=== PATIENT | male | born 1940 | race Caucasian/White ===

== ENCOUNTER 2017-06-21 08:13 | Inpatient (IN) | payer OTHER, MEDICARE ==
[2017-06-21] VITALS (7 sets, daily range): BP systolic 119–126; BP diastolic 60–64
[~2017-06-21] VITALS: Ht 167.6 cm; Wt 64.0 kg
[~2017-06-21 08:13] MED LIST: ASPIRIN81 M4 PO; NIFEDIPINE ER60 M1 PO; PRAVACHOL40 M1 PO
--- NOTE | 2017-06-21 08:27 | ED GENERAL ADULT ---
History of Present Illness General Chief Complaint: General Adult Stated Complaint: SENT IN BY DR EVERETT FOR KIDNEY FAILURE Source: patient Exam Limitations: no limitations Vital Signs & Intake/Output Vital Signs & Intake/Output Vital Signs Date Time Temp Pulse Resp B/P B/P Pulse O2 O2 Flow FiO2 Mean Ox Delivery Rate 06/21 1143 97.4 70 18 147/65 98 Room Air 06/21 0856 98 Room Air 06/21 0825 96.6 84 18 120/59 100 Room Air Allergies Coded Allergies: NO KNOWN ALLERGIES (08/04/13) Reconcile Medications Aspirin (Aspirin*) 81 MG TAB.CHEW 1 TAB PO DAILY HEART HEALTH (Reported) Nifedipine (Nifedipine ER) 60 MG TABLET.ER 1 TAB PO DAILY HEART (Reported) Pravastatin Sodium (Pravachol) 40 MG TABLET 1 TAB PO DAILY CHOLESTEROL ( Reported) Triage Note: PT TO ED FOR RE EVAL, SAW WEDNESDAY FOR NEW ONSET LIVER AND KIDNEY FAILURE AND LEFT AMA. REPORTING BACK TODAY FOR "FURTHER WORK UP". REPORTING FEELING WELL, NO VOMITING/NAUSEA OVER THE WEEKEND, APPEARS JAUNDICE IN TRIAGE WITH DISTENDED ABD. Triage Nurses Notes Reviewed? yes Onset: Gradual Duration: unknown duration Timing: recent history HPI: 06/21/17 9 AM 76-year-old male presents to the emergency department for follow-up. He was seen in the emergency department on Wednesday and signed out AMA. He had acute kidney injury, abdominal distention liver failure and jaundice. He now presents for follow-up. He denies fever chest pain or shortness of breath Past History Travel History Traveled to [place] past 21 day No Medical History Any Pertinent Medical History? see below for history Neurological: NONE EENT: NONE Cardiovascular: TRIPLE BYPASS Respiratory: NONE Gastrointestinal: NONE Hepatic: LIVER FAILURE Renal: KIDNEY FAILURE Musculoskeletal: GENERAL BODY ACHES Psychiatric: NONE Endocrine: NONE Blood Disorders: NONE Cancer(s): NONE Surgical History Surgical History: non-contributory Psychosocial History Who do you live with Spouse Services at Home None What is your primary language Czech Tobacco Use: Current Daily Use Daily Tobacco Use Amount/Type: => 5 Cigarettes daily ETOH Use: heavy use Illicit Drug Use: denies illicit drug use Family History Family History, If Any: MOTHER, ; Cause: Cancer. Hx Contributory? No Review of Systems Review of Systems Constitutional: Reports: no symptoms. EENTM: Reports: no symptoms. Respiratory: Reports: no symptoms. Cardiovascular: Reports: no symptoms. GI: Reports: see HPI. Genitourinary: Reports: no symptoms. Musculoskeletal: Reports: no symptoms. Skin: Reports: jaundice. Neurological/Psychological: Reports: no symptoms. Hematologic/Endocrine: Reports: no symptoms. Immunologic/Allergic: Reports: no symptoms. All Other Systems: Reviewed and Negative Physical Exam Physical Exam General Appearance: awake, anxious, mild distress Head: atraumatic, normal appearance Eyes: Bilateral: other (JAUNDICE). Ears, Nose, Throat: normal pharynx Neck: normal inspection, supple Respiratory: no respiratory distress Cardiovascular: regular rate/rhythm Peripheral Pulses: 4+ radial (R), 4+ radial (L) Gastrointestinal: distention Back: normal range of motion Extremities: pedal edema Neurologic/Psych: no motor/sensory deficits, awake, alert, oriented x 3 Skin: jaundice Core Measures ACS in differential dx? No CVA/TIA Diagnosis: No Severe Sepsis Present: No Septic Shock Present: No Progress Differential Diagnoses I considered the following diagnoses in my evaluation of the patient: [liver ailure, renal failure, malignancy,] Plan of Care: Orders Procedure Date/time Status Heart Healthy Diet 06/21 D Active Patient Data 06/21 1133 Active ED Holding Orders 06/21 1109 Active Admit to inpatient 06/21 1109 Active Vital Signs 06/21 1109 Active Code Status 06/21 1109 Active US-LIMITED ABDOMEN 06/21 0918 Active PROTHROMBIN TIME 06/21 0829 Complete COMPREHENSIVE METABOLIC PANEL 06/21 0829 Complete CBC WITHOUT DIFFERENTIAL 06/21 0829 Complete EKG 06/21 0829 Active Current Medications Sig/Izzy Start time Last Medication Dose Stop Time Status Admin Sodium Chloride 1,000 ML ONCE ONE 06/21 0830 AC 06/21 (Normal Saline 0.9%) 06/21 1829 0851 Laboratory Tests 06/21/17 0848: Anion Gap 18 H, Estimated GFR 19 L, BUN/Creatinine Ratio 22.5, Glucose 96, Calcium 10.0, Total Bilirubin 14.5 H, AST 451 H, ALT 240 H, Alkaline Phosphatase 692 H, Total Protein 7.4, Albumin 3.5, Globulin 3.9, Albumin/ Globulin Ratio 0.9 L, PT 15.0 H, INR 1.43 H, CBC w Diff MAN DIFF ORDERED, RBC 3.66 L, MCV 96.0 H, MCH 33.2 H, RDW 15.9 H, MPV 7.6, Segmented Neutrophils 86 H, Band Neutrophils 1, Lymphocytes 6 L, Monocytes 4, Eosinophils 2, Basophils 1, Platelet Estimate INCREASED, Anisocytosis 1+, Target Cells , PUBS MCHC 34.5 Initial ED EKG: NSR, nonspecific ST T wave chg Departure Departure Disposition: OTHER PYSCH Condition: Stable Clinical Impression Primary Impression: NGOZI (acute kidney injury) Secondary Impressions: Liver failure Referrals: RANULFO GONGORA MD (PCP/Family) Departure Forms: Customer Survey General Discharge Information Admission Note Spoke With: ANA DAVEY,RAQUEL Documentation of Exam: Documentation of any treatments & extenuating circumstances including Concerns Regarding Discharge (functional status, medication knowledge or non-compliance, living conditions, etc.) that warrant an admission rather than observation: [The patient needs admission for IV fluids, GI consult, renal consult, workup for liver failure The patient also should have oncology consult for the thrombocytosis and surgical consult for the cholelithiasis. ] PATIENT: PAULINE EDUARDO PRESENT AGE: 76 PATIENT ACCOUNT NO: [id number] : 38 LOCATION: [facility] ORDERING PHYSICIAN: ESTEFANY EVERETT DO SERVICE DATE: 06/21/17 EXAM TYPE: CAT - CT ABD & PELVIS W/O IV CONTRAS EXAMINATION: CT ABDOMEN AND PELVIS WITHOUT CONTRAST CLINICAL INFORMATION: Jaundice. Concern for metastatic disease. COMPARISON: None. TECHNIQUE: Contiguous axial thin section helical images of the abdomen and pelvis were performed without oral or IV contrast. The data set was reformatted in the coronal and sagittal planes and reviewed on an independent workstation. The examination is significantly limited due to the lack of IV contrast. DLP: 366 mGy-cm. FINDINGS: There is mild dependent bibasilar atelectasis. The visualized lung bases are otherwise clear. The visualized portions of the heart are unremarkable. The liver is of overall normal attenuation with subcapsular nodularity and slightly decreased size. There is suggestion of a mass lesion within the lateral aspect of the right lobe of the liver measuring approximately 5 cm. This is best demonstrated on image 19/90. There is a cpbfs-uc-hptzehva amount of free fluid overlying the right lobe of the liver. The gallbladder is mildly distended. There is a small calculus measuring approximately 4 mm. There is likely wall thickening with mild adjacent pericholecystic fluid. The spleen, pancreas, adrenal glands are unremarkable. There is a small amount of free fluid within the left upper quadrant. The left kidney is of normal size and attenuation with scattered vascular calcifications. There is no hydronephrosis. There is an atrophic right kidney with diffuse cortical thinning. There is no hydronephrosis or nephrolithiasis. There is no abdominal free fluid. There is neither mesenteric nor retroperitoneal lymphadenopathy. Normal unopacified loops of small and large bowel are identified. There is a uxjfq-fk-hzhehvup amount of pelvic free fluid. The urinary bladder is unremarkable. There is neither pelvic nor inguinal lymphadenopathy. Bone windows: There is height loss and concavity to the superior endplate to L3. 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 There is mild disc height loss within the lower lumbar spine. IMPRESSION: Significantly limited examination due to the lack of IV contrast. However, there is suggestion of a mass lesion within the lateral aspect of the right lobe of the liver. The liver has extensive subcapsular nodularity and decreased size which is nonspecific, but could be indicative of chronic hepatocellular disease, such as cirrhosis. Recommendation is for correlation with abdominal MRI with contrast for further characterization of the suspected hepatic mass lesion. Gallbladder wall thickening with pericholecystic fluid. There is a solitary calculus. Cholecystitis cannot be excluded. Consider correlation with ultrasound. Atrophic right kidney. Hglxq-ju-lwceaugu amount of free fluid within the abdomen and pelvis of uncertain etiology. DICTATED BY: SHANELL ROSS MD DATE/TIME DICTATED:06/21/171000 TRAVELING CRANE OPERATOR:MELISSA DATE/TIME TRANSCRIBED:06/21/171000 CONFIDENTIAL, DO NOT COPY WITHOUT APPROPRIATE AUTHORIZATION. <Electronically signed in Other Vendor System> SIGNED BY: SHANELL ROSS MD 06/21/17 101 Critical Care Note Critical Care Note Critical Care Time: non-applicable
--- NOTE | 2017-06-21 08:56 | RADIOLOGY REPORT ---
EXAMINATION: CHEST 2 VIEWS CLINICAL INFORMATION: Jaundice. Concern for CHF. COMPARISON: 11/30/2012. TECHNIQUE: PA and lateral views of the chest were obtained. FINDINGS: The cardiac silhouette is not enlarged. Intact midline sternal wires are present. The mediastinal and hilar contours are unremarkable. There are neither pleural effusions nor pneumothoraces. There are no consolidations. The lungs are hyperinflated. No acute rib fractures are present. There is a healing posterior right eighth rib fracture present. IMPRESSION: No evidence for acute disease. Lung hyperinflation.
[2017-06-21 09:11] LABS: HEMATOCRIT 35.1 % (42-52); MEAN CORPUSCULAR HGB 33.2 PG (27.0-31.0); MEAN CORPUSCULAR HGB CONC 34.5 G/DL (33.0-37.0); MEAN PLATELET VOLUME 7.6 FL (7.4-10.4); RBC DISTRIBUTION WIDTH 15.9 % (11.5-14.5); RED BLOOD CELL CT 3.66 /CUMM (4.70-6.10); WHITE BLOOD CELL COUNT 15.9 /CUMM (4.8-10.8)
[2017-06-21 09:31] LABS: PLATELET COUNT 1171 /CUMM (130-400)
--- NOTE | 2017-06-21 10:11 | CT SCAN REPORT ---
EXAMINATION: CT ABDOMEN AND PELVIS WITHOUT CONTRAST CLINICAL INFORMATION: Jaundice. Concern for metastatic disease. COMPARISON: None. TECHNIQUE: Contiguous axial thin section helical images of the abdomen and pelvis were performed without oral or IV contrast. The data set was reformatted in the coronal and sagittal planes and reviewed on an independent workstation. The examination is significantly limited due to the lack of IV contrast. DLP: 366 mGy-cm. FINDINGS: There is mild dependent bibasilar atelectasis. The visualized lung bases are otherwise clear. The visualized portions of the heart are unremarkable. The liver is of overall normal attenuation with subcapsular nodularity and slightly decreased size. There is suggestion of a mass lesion within the lateral aspect of the right lobe of the liver measuring approximately 5 cm. This is best demonstrated on image 19/90. There is a tlgxf-ai-qzptyfqt amount of free fluid overlying the right lobe of the liver. The gallbladder is mildly distended. There is a small calculus measuring approximately 4 mm. There is likely wall thickening with mild adjacent pericholecystic fluid. The spleen, pancreas, adrenal glands are unremarkable. There is a small amount of free fluid within the left upper quadrant. The left kidney is of normal size and attenuation with scattered vascular calcifications. There is no hydronephrosis. There is an atrophic right kidney with diffuse cortical thinning. There is no hydronephrosis or nephrolithiasis. There is no abdominal free fluid. There is neither mesenteric nor retroperitoneal lymphadenopathy. Normal unopacified loops of small and large bowel are identified. There is a hcygb-op-cofnjncq amount of pelvic free fluid. The urinary bladder is unremarkable. There is neither pelvic nor inguinal lymphadenopathy. Bone windows: There is height loss and concavity to the superior endplate to L3. This is age indeterminant, but likely outbound telemarketing representative of a chronic fracture. There is mild disc height loss within the lower lumbar spine. IMPRESSION: Significantly limited examination due to the lack of IV contrast. However, there is suggestion of a mass lesion within the lateral aspect of the right lobe of the liver. The liver has extensive subcapsular nodularity and decreased size which is nonspecific, but could be indicative of chronic hepatocellular disease, such as cirrhosis. Recommendation is for correlation with abdominal MRI with contrast for further characterization of the suspected hepatic mass lesion. Gallbladder wall thickening with pericholecystic fluid. There is a solitary calculus. Cholecystitis cannot be excluded. Consider correlation with ultrasound. Atrophic right kidney. Vehjs-tt-qdjxfccm amount of free fluid within the abdomen and pelvis of uncertain etiology.
--- NOTE | 2017-06-21 14:03 | Admission Certification ---
Admission Certification Certification Statement - As attending physician, I certify that at the time of - admission, based on clinical presentation, severity of - symptoms, need for further diagnostic testing and - therapeutic interventions, and risk of adverse outcomes - without in-hospital treatment, in my clinical assessment, - this patient requires an acute hospital stay for a minimum - of two nights or longer. I have also considered psychsocial - factors such as support system, advanced age, financial - issues, cognitive issues, and failed out-patient treatments, - past re-admission history, safety of patient, and lack of - compliance as applicable. Specific rationale supporting this admission is: NGOZI in pt with suspected cirrhosis and ?hepatocellular ca
--- NOTE | 2017-06-21 14:14 | ULTRASOUND REPORT ---
EXAMINATION: US ABDOMEN LIMITED CLINICAL INFORMATION: Painless jaundice. COMPARISON: CT scan of the abdomen and pelvis dated 06/21/2017. TECHNIQUE: Real-time imaging of the right upper quadrant abdominal viscera. FINDINGS: PANCREAS: The pancreatic body and portions of the head and tail are visualized and appear unremarkable. LIVER: The liver is diffusely heterogeneous in echotexture, limiting assessment for mass lesion. The liver contour is lobulated and overall size of the liver is diminished, consistent with liver cirrhosis. Small amount of perihepatic ascites is seen. No definite discrete liver mass is appreciated. With color Doppler imaging, the intrahepatic IVC and the 3 hepatic veins are patent. The main portal vein in the maykel hepatis is partially patent with suspicion of nonocclusive thrombus seen. The more central portal vein and the right and left portal veins are poorly visualized and do not demonstrate flow with color Doppler imaging, raising the suspicion of portal venous thrombosis. GALLBLADDER: There is diffuse gallbladder wall thickening and gallbladder edema, which is a nonspecific finding in the setting of ascites and hepatic dysfunction. There is at least one mobile echogenic gallstone within the gallbladder. No sonographic Burnett's sign is elicited. COMMON BILE DUCT: Poorly visualized but no abnormally dilated common bile duct is seen. On one image, common bile duct is partially imaged, measuring 0.3 cm. RIGHT KIDNEY: Diffuse atrophy of the right kidney is noted with renal cortical thinning and increased echogenicity seen. No hydronephrosis. No renal calculi or focal parenchymal lesions. The kidney measures 9.4 cm in maximum dimension. FREE FLUID: Small volume of ascites is seen in the right upper quadrant. IMPRESSION: 1. Above findings are consistent with liver cirrhosis with suspicion of partial thrombus in the central portal vein and probably complete thrombosis in the right and left portal veins, which are not seen with color Doppler imaging. 2. No discrete liver mass appreciated, including in the right lobe of the liver, where on CT scan in a 5 cm mass lesion was suspected. 3. Diffuse gallbladder wall thickening, edema, pericholecystic fluid, and small gallstone are noted. Findings are nonspecific in the setting of hepatic dysfunction and ascites. Close clinical correlation is requested. 4. Atrophic right kidney. Given the above findings of suspected portal venous thrombosis and potentially discrepant findings between the CT scan and this ultrasound in regards to hepatic mass lesion, further more sensitive assessment with a dynamic MRI scan with contrast is recommended.
--- NOTE | 2017-06-21 14:16 | Cons- Gastroenterology ---
General Information and HPI Consulting Request Date of Consult: 06/21/17 Requested By: ALLY DAVEY,JAMES Ramirez Reason for Consult: I was called by the [place] [facility] on behalf of the hospitalist service to assess elevated LFTs & jaundice, in the setting of history of EtOH. Source of Information: patient, family (pt's dtr, Cindy) Exam Limitations: poor historian, limited records History of Present Illness: 76 y/o male, DNR/DNI, KASHIA, poor historian, ASHD, CABG x 3 1991 (denies NM, does not see cardiology or renal), HTN, HLD, TIA (right handed), low Vit D, ? if COPD , CRF, sent to [place] [facility] by PMD, Dr. Solano 06/18/2017, as he was found to be yellow at office visit. The patient had elevated LFTs and acute on chronic renal insufficiency on 06/18/2017 in the ER, however he left AGAINST MEDICAL ADVICE and refused imaging studies. He had been drinking alcohol up until 2 weeks prior. He was sent back to the ER by his PMD 06/21/2017, prompting the GI consult. Imaging studies were limited, due to his low GFR. 40- pack-year cigarette smoker, stopping in 1991 at the time of his CABG, but resumed cigarettes 09/2016, when his second . He is currently smoking 1/2 pack a day. He admitted to at least 5 scotches daily x years. He denied any history of viral hepatitis, IVDA, previous transfusions, body piercings, or tattoos. He denied any history of increased abdominal girth or peripheral edema. He was confused yesterday, 06/20/17, driving to [place] , when trying to visit his daughter in [place]. He denied any history of DTs, seizure , or alcohol withdrawal. His PMD stopped his ASA 81 mg daily, Provastatin & Procardia on 06/18/17, when his abnormal labs were noted. He had never had an EGD or colonoscopy. He denied any known family history of GI malignancy, GI disease, or inherited liver disease, although his mother at 60 from some type of malignancy, primary site unknown. He was unaware of being yellow, but did note pruritus & dark urine for the past week. He denied any light stool, and stated he had dark stools 1 week prior (light brown, OB+ stool on my digital exam 06/21/17). He denied any NSAID use. He denied any chest pain, shortness of breath, fevers, chills, night sweats, symptoms of UTI (aside from frequency, without dysuria), or URI. He denied any nausea, vomiting, reflux, odynophagia, dysphagia, early satiety, abdominal pain, hematemesis, hemoptysis, diarrhea, constipation, obstipation, tenesmus, or rectal bleeding. He has solid bowel movements TID, without change. He claimed he lost 40 pounds since his 09/2016, with decreased appetite. He admitted to depression, without SI or [place]. There were some questionable vague myalgias and arthralgias, which the patient cannot fully define. 08/17/14: SPEP/IPEP- *possible IgG lambda monoclonal protein. 08/20/14: UPEP- *no monoclonal Ig detected. 06/18/17: WBC 15.6 (89S/1B/3L/5M/1E/1 Baso), H/H 11.6/33.1, MCV 94.7, RDW 16.4, *PLT 1249, glucose 96, BUN/Cr 59/2.7, GFR 23, Na 132, K 5.2, HCO3 12, AG 18, Ca2 + 10.6, albumin 3.8, globulin 3.8, TBil 14 (DBil 12.6), alk phos 654, AST 293, ALT 193; Hep A Ab, Hep Bs Ag, Hep B core Ab, Hep C Ab- all negative (*no PT/PTT were sent then). *Patient left ER AMA then. 06/21/17: WBC 15.9 (86S/1B/6L/4M/2E/1 Baso), H/H 12.1/35.1, MCV 96, *PLT 1171, PT 15.0, INR 1.43, glucose 96, BUN/Cr 72/3.2, GFR 19, Na 131, K 4.8, HCO3 13, AG 18, Ca2+ 10, albumin 3.5, globulin 3.9, TBil 14.5 (*fracs pending), alk phos 692 , AST 451, ALT 240, lactate 1.9 06/21/17: U/A- hazy, judith, 1.020, 6.0, 3-5 WBC, few granular casts, few bact, mod amorph, large Hgb, + icto, 30+ protein, 4.0 urobil, neg nitrite, trace esterase. 06/21/17: *MELD- [place] 31, UNOS 31. 06/21/17: *[facility] 28.3. 06/21/17: EKG- NSR @ 69, normal axis, LAD, low voltage limb leads, PRWP. 06/21/17: CHEST XRAY, PA AND LATERAL- No evidence for acute disease. Lung hyperinflation.No cardiomegaly. No infiltrate or effusion. Post CABG. Healing posterior right 8th rib fracture. No acute rib fractures. 06/21/17: CT ABDOMEN AND PELVIS WITHOUT CONTRAST- Significantly limited examination due to the lack of IV contrast (*low GFR). * However, there is suggestion of a 5 cm mass lesion within the lateral aspect of the right lobe of the liver. The liver has extensive subcapsular nodularity and decreased size which is nonspecific, but could be indicative of chronic hepatocellular disease, such as cirrhosis. Recommendation is for correlation with abdominal MRI with contrast for further characterization of the suspected hepatic mass lesion. Gallbladder wall thickening with pericholecystic fluid. There is a solitary calculus. Cholecystitis cannot be excluded. Consider correlation with ultrasound. Atrophic right kidney & normal sized left kidney, without hydronephrosis or nephrolithiasis. Fyqbz-mm-zwyerumh amount of free fluid within the abdomen and pelvis (LUQ) of uncertain etiology. 06/21/17: US ABDOMEN LIMITED- 1. Above findings are consistent with liver cirrhosis with *suspicion of partial thrombus in the central portal vein and probably complete thrombosis in the right and left portal veins, which are not seen with color Doppler imaging. 2. *No discrete liver mass appreciated, including in the right lobe of the liver, where on CT scan in a 5 cm mass lesion was suspected. 3. Diffuse gallbladder wall thickening, edema, pericholecystic fluid, and small gallstone are noted. Findings are nonspecific in the setting of hepatic dysfunction and ascites. Negative ultrasonic Burnett sign. Close clinical correlation is requested. No dilated ducts seen. CBD 3 mm. * 4. Atrophic right kidney. *Given the above findings of suspected portal venous thrombosis and potentially discrepant findings between the CT scan and this ultrasound in regards to hepatic mass lesion, further more sensitive assessment with a dynamic MRI scan with contrast is recommended. *I discussed this with Dr. Goodman, of [facility], on 06/21/17. *The patient's low GFR prohibits MRI with gadolinium, so she advised MRI without gadolinium to r/o portal vein thrombus. Allergies/Medications Allergies: Coded Allergies: NO KNOWN ALLERGIES (UNKNOWN 06/21/17) Home Med List: Aspirin (Aspirin*) 81 MG TAB.CHEW 1 TAB PO DAILY HEART HEALTH (Reported) Nifedipine (Nifedipine ER) 60 MG TABLET.ER 1 TAB PO DAILY HEART (Reported) Pravastatin Sodium (Pravachol) 40 MG TABLET 1 TAB PO DAILY CHOLESTEROL ( Reported) Current Medications: Current Medications Sig/Izzy Start time Last Medication Dose Route Stop Time Status Admin Folic Acid 1 MG DAILY 06/22 1000 AC PO Lorazepam 0 Q1P PRN 06/21 1415 AC IV Morphine Sulfate 0.5 MG Q6-PRN PRN 06/21 1545 AC IV Multivitamins 0 .STK-MED ONE 06/21 1412 DC PO Multivitamins 1 TAB DAILY 06/21 1400 AC 06/21 PO 1408 Nicotine 0 .STK-MED ONE 06/21 1412 DC TOP Nicotine 14 MG Q24 06/21 1359 AC 06/21 TOP 1408 Polyethylene Glycol 1 GAL ONE TIME ONE 06/21 1600 DC PO 06/21 1601 Sodium Chloride 1,000 ML .Q10H 06/21 1900 AC IV 06/22 0459 Sodium Chloride 1,000 ML .Q10H 06/21 1400 DC 06/21 IV 06/21 2359 1414 Sodium Chloride 1,000 ML ONCE ONE 06/21 0830 AC 06/21 IV 06/21 1829 0851 Past History Travel History Traveled to [place] past 21 day No Medical History Blood Transfusion Hx: No Neurological: TIA EENT: NONE Cardiovascular: CAD, hypertension, hyperlipidemia, TRIPLE BYPASS 1991 CABG Respiratory: NONE (hyperinflated lungs on CXR), COPD Gastrointestinal: NONE Hepatic: cholelithiasis, jaundice, elevated LFTs- EtOH Renal: chronic kidney disease, KIDNEY FAILURE Musculoskeletal: GENERAL BODY ACHES Psychiatric: depression (since 2nd 09/2016) Endocrine: vitamin D deficiency Blood Disorders: thrombocytosis Cancer(s): NONE 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 , Age 60+; Cause: Cancer. FATHER, , Age 59; Cause: Myocardial infarction. Psychosocial History Where Do You Live? Home Who Do You Live With? self Services at Home: None Primary Language: Greek Smoking Status: Current Everyday Smoker ETOH Use: heavy use Illicit Drug Use: denies illicit drug use Living Will? yes Power of Amusement Park Entertainer/HCP? no Other Social History: from 1st in 1973. Twin dtrs by 1st - [employer]. 2nd 1976, who 09/2016. Depressed since. 40 pk yr cigarette smoker ( resumed 1/2 ppd in 09/2016). Long hx EtOH abuse- 5 scotches/day. No drugs or IVDA. 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 Lives alone. Functional Ability ADLs Independent: dressing, eating, toileting, bathing. Ambulation: independent IADLs Independent: shopping, housework, finances, food prep, telephone, transportation , medication admin. 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 Review of Systems Constitutional: Reports: weakness, unexplained weight loss. Denies: chills, diaphoresis, fever, malaise. EENTM: Reports: icterus. Denies: blurred vision, double vision, visual changes, eye pain, eye drainage, eye tearing, ear discharge, ear pain, ear redness, hearing changes, nasal congestion, epistaxis, nasal pain, throat pain, throat swelling, mouth pain, tooth pain. Cardiovascular: Denies: chest pain, edema, orthopena, palpitations, peripheral edema, syncope. Respiratory: Denies: cough, hemoptysis, orthopnea, short of breath, sputum production, stridor, wheezing. GI: Denies: abdominal pain, bloating, constipation, diarrhea, distention, bowel incontinence, melena, nausea, bloody stool, changes in stool, vomiting, steatorrhea. Genitourinary: Reports: frequency. Denies: discharge, dysuria, hematuria, hesitation, nocturia , pain, urgency. Musculoskeletal: Reports: joint swelling, muscle stiffness. Denies: back pain, gout, joint pain, muscle pain, neck pain. Skin: Reports: jaundice (& pruritis). Denies: cysts, change in skin color, change in hair/nails, dryness, erythema, lesions, lymphangitis, lumps, moles, rash. Neurological/Psychological: Reports: depressed (since 09/2016). Denies: anxiety, ataxia, cognitive dysfunction, confusion, dementia, emotional problems, headache, numbness, paresthesia, pre-existing deficit, petit mal seizures, tingling, tremors, tonic-clonic seizures, unable to move lower ext, unable to move upper ext, weakness, other. Hematologic/Endocrine: Denies: bruising, bleeding, polyuria, polydipsia. Immunologic/Allergic: Denies: splenectomy, HIV/AIDS, lymphadenopathy. All Other Systems: Reviewed and Negative Exam & Diagnostic Data Vital Signs and I&O Vital Signs Date Time Temp Pulse Resp B/P B/P Pulse O2 O2 Flow FiO2 Mean Ox Delivery Rate 06/21 1425 98.7 72 18 119/64 06/21 1421 98.7 72 18 119/64 97 Room Air 06/21 1143 97.4 70 18 147/65 98 Room Air 06/21 0856 98 Room Air 06/21 0825 96.6 84 18 120/59 100 Room Air Intake & Output 06/21 1600 06/21 0400 06/20 1600 06/20 0400 06/19 1600 06/19 0400 Intake Total Output Total Balance Patient 141 lb Weight Weight Reported by Patient Measurement Method Physical Exam: Well-developed, slightly malnourished, chronically ill-appearing yellow male, in no apparent distress. Sclera icteric. Conjunctiva pink. Oropharynx clear. No oral thrush. No aphthous ulcers. There is no adenopathy, thyromegaly, JVD, or HJR. carotids 1+ B/L without bruit. No peripheral stigmata of inflammatory bowel disease on exam. ? Faint spiders on the anterior chest wall. No gynecomastia. No CVA tenderness. Lungs: clear to A&P, with slight decreased breath sounds at the bases B/L. Slightly prolonged expiratory phase, without wheezing, rales, or rhonchi. Heart exam: regular rate rhythm, S1 and S2, without any murmur. Post CABG scar. Abdominal exam: normal bowel sounds, soft belly, nontender, without guarding or rebound. No definite mass. Liver approximately 11 cm by percussion. Borderline palpable spleen tip. Negative Burnett sign. Scant fluid shift. No pulsatile mass. No epigastric bruit. Digital rectal exam: done by myself 06/21/17: light brown stool, OB+, without mass. Smooth enlarged prostate, without nodule. No external hemorrhoids or fissure. Extremities: without C, C, or E. No palpable cords. No palmar erythema. No Dupuytren's contractures. Distal pulses 1+ bilaterally. DTRs 1+ bilaterally. Right handed. CN II-XII intact. Alert and oriented x 3. Motor 5/5 B/L. A detailed exam for peripheral neyuropathy & visual field testing was deferred. No tremor. No asterixis. Results Pertinent Lab Results: Laboratory Tests 06/21 06/21 1540 1540 Chemistry Lactic Acid (0.7 - 2.1 mmol/L) 1.9 Urines Urinalysis MOD H Urine Color (YEL,AMB,STR) JUDITH Urine Clarity (CLEAR) HAZY H Urine pH (5.0 - 8.0) 6.0 Ur Specific [place] (1.001 - 1.035) 1.020 Urine Protein (NEG,<30 MG/DL) 30 H Urine Ketones (NEG) NEG Urine Nitrite (NEG) NEG Urine Bilirubin (NEG) POS@ICTO H Urine Urobilinogen (0.1 - 1.0 EU/dl) 4.0 H Ur Leukocyte Esterase (NEG) TRACE H Ur Microscopic SEDIMENT EXAMINED Urine WBC (0 - 2 /HPF) 3-5 H Ur Epithelial Cells (NONE,FEW) MOD H Urine Bacteria (NEG/NONE) FEW H Granular Casts (NONE /LPF) FEW H Urine Hemoglobin (NEG) LARGE H Ur Random Creatinine (mg/dL) 122.8 Ur Random Sodium (30 - 90 mmol/L) 8 L Ur Random Potassium (mmol/L) 49.2 Fraction Sodium Excret (<1% %) 0.2 Urine Glucose (N MG/DL) NEG 06/21 0848 Chemistry Sodium (137 - 145 mmol/L) 131 L Potassium (3.5 - 5.1 mmol/L) 4.8 Chloride (98 - 107 mmol/L) 100 Carbon Dioxide (22 - 30 mmol/L) 13 L Anion Gap (5 - 16) 18 H BUN (9 - 20 mg/dL) 72 H Creatinine (0.7 - 1.2 mg/dL) 3.2 H Estimated GFR (>60 ml/min) 19 L BUN/Creatinine Ratio (7 - 25 %) 22.5 Glucose (65 - 99 mg/dL) 96 Calcium (8.4 - 10.2 mg/dL) 10.0 Total Bilirubin (0.2 - 1.3 mg/dL) 14.5 H Direct Bilirubin (< 0.4 mg/dL) 12.6 H AST (17 - 59 U/L) 451 H ALT (21 - 72 U/L) 240 H Alkaline Phosphatase (< 127 U/L) 692 H Total Protein (6.3 - 8.2 g/dL) 7.4 Albumin (3.5 - 5.0 g/dL) 3.5 Globulin (1.9 - 4.2 gm/dL) 3.9 Albumin/Globulin Ratio (1.1 - 2.2 %) 0.9 L Coagulation PT (9.4 - 12.5 SEC) 15.0 H INR (0.90 - 1.17) 1.43 H Hematology CBC w Diff MAN DIFF ORDERED WBC (4.8 - 10.8 /CUMM) 15.9 H RBC (4.70 - 6.10 /CUMM) 3.66 L Hgb (14.0 - 18.0 G/DL) 12.1 L Hct (42 - 52 %) 35.1 L MCV (80.0 - 94.0 FL) 96.0 H MCH (27.0 - 31.0 PG) 33.2 H RDW (11.5 - 14.5 %) 15.9 H Plt Count (130 - 400 /CUMM) 1171 *H MPV (7.4 - 10.4 FL) 7.6 Segmented Neutrophils (42.2 - 75.2 %) 86 H Band Neutrophils (0.0 - 5.0 %) 1 Lymphocytes (20.5 - 51.1 %) 6 L Monocytes (1.7 - 9.3 %) 4 Eosinophils (0 - 5.0 %) 2 Basophils (0.0 - 2.0 %) 1 Platelet Estimate (ADEQUATE) INCREASED Anisocytosis 1+ Target Cells PUBS MCHC (33.0 - 37.0 G/DL) 34.5 Retic Count (0.5 - 2.0 %) 3.37 H Imaging/Other Studies: 06/21/17: EKG- NSR @ 69, normal axis, LAD, low voltage limb leads, PRWP. 06/21/17: CHEST XRAY, PA AND LATERAL- No evidence for acute disease. Lung hyperinflation.No cardiomegaly. No infiltrate or effusion. Post CABG. Healing posterior right 8th rib fracture. No acute rib fractures. 06/21/17: CT ABDOMEN AND PELVIS WITHOUT CONTRAST- Significantly limited examination due to the lack of IV contrast (*low GFR). * However, there is suggestion of a 5 cm mass lesion within the lateral aspect of the right lobe of the liver. The liver has extensive subcapsular nodularity and decreased size which is nonspecific, but could be indicative of chronic hepatocellular disease, such as cirrhosis. Recommendation is for correlation with abdominal MRI with contrast for further characterization of the suspected hepatic mass lesion. Gallbladder wall thickening with pericholecystic fluid. There is a solitary calculus. Cholecystitis cannot be excluded. Consider correlation with ultrasound. Atrophic right kidney & normal sized left kidney, without hydronephrosis or nephrolithiasis. Fylvi-km-zxajfgac amount of free fluid within the abdomen and pelvis (LUQ) of uncertain etiology. 06/21/17: US ABDOMEN LIMITED- 1. Above findings are consistent with liver cirrhosis with *suspicion of partial thrombus in the central portal vein and probably complete thrombosis in the right and left portal veins, which are not seen with color Doppler imaging. 2. *No discrete liver mass appreciated, including in the right lobe of the liver, where on CT scan in a 5 cm mass lesion was suspected. 3. Diffuse gallbladder wall thickening, edema, pericholecystic fluid, and small gallstone are noted. Findings are nonspecific in the setting of hepatic dysfunction and ascites. Negative ultrasonic Burnett sign. Close clinical correlation is requested. No dilated ducts seen. CBD 3 mm. * 4. Atrophic right kidney. *Given the above findings of suspected portal venous thrombosis and potentially discrepant findings between the CT scan and this ultrasound in regards to hepatic mass lesion, further more sensitive assessment with a dynamic MRI scan with contrast is recommended. *I discussed this with Dr. Goodman, of [facility], on 06/21/17. *The patient's low GFR prohibits MRI with gadolinium, so she advised MRI without gadolinium to r/o portal vein thrombus. Assessment/Plan Assessment/Recommendations: 76 y/o male, DNR/DNI, KASHIA, poor historian, ASHD, CABG x 3 1991 (denies NM, does not see cardiology or renal), HTN, HLD, TIA (right handed), low Vit D, ? if COPD , CRF, sent to [place] ER by PMD, Dr. Solano 06/18/2017, as he was found to be yellow at office visit. The patient had elevated LFTs and acute on chronic renal insufficiency on 06/18/2017 in the ER, however he left AGAINST MEDICAL ADVICE and refused imaging studies. He had been drinking alcohol up until 2 weeks prior. He was sent back to the ER by his PMD 06/21/2017, prompting the GI consult. Imaging studies were limited, due to his low GFR. 40- pack-year cigarette smoker, stopping in 1991 at the time of his CABG, but resumed cigarettes 09/2016, when his second . He is currently smoking 1/2 pack a day. He admitted to at least 5 scotches daily x years. He denied any history of viral hepatitis, IVDA, previous transfusions, body piercings, or tattoos. He denied any history of increased abdominal girth or peripheral edema. He was confused yesterday, 06/20/17, driving to [place] , when trying to visit his daughter in [place]. He denied any history of DTs, seizure , or alcohol withdrawal. His PMD stopped his ASA 81 mg daily, Provastatin & Procardia on 06/18/17, when his abnormal labs were noted. He had never had an EGD or colonoscopy. He denied any known family history of GI malignancy, GI disease, or inherited liver disease, although his mother at 60 from some type of malignancy, primary site unknown. He was unaware of being yellow, but did note pruritus & dark urine for the past week. He denied any light stool, and stated he had dark stools 1 week prior (light brown, OB+ stool on my digital exam 06/21/17). He denied any NSAID use. He denied any chest pain, shortness of breath, fevers, chills, night sweats, symptoms of UTI (aside from frequency, without dysuria), or URI. He denied any nausea, vomiting, reflux, odynophagia, dysphagia, early satiety, abdominal pain, hematemesis, hemoptysis, diarrhea, constipation, obstipation, tenesmus, or rectal bleeding. He has solid bowel movements TID, without change. He claimed he lost 40 pounds since his 09/2016, with decreased appetite. He admitted to depression, without SI or [place]. There were some questionable vague myalgias and arthralgias, which the patient cannot fully define. 08/17/14: SPEP/IPEP- *possible IgG lambda monoclonal protein. 08/20/14: UPEP- *no monoclonal Ig detected. 06/18/17: WBC 15.6 (89S/1B/3L/5M/1E/1 Baso), H/H 11.6/33.1, MCV 94.7, RDW 16.4, *PLT 1249, glucose 96, BUN/Cr 59/2.7, GFR 23, Na 132, K 5.2, HCO3 12, AG 18, Ca2 + 10.6, albumin 3.8, globulin 3.8, TBil 14 (DBil 12.6), alk phos 654, AST 293, ALT 193; Hep A Ab, Hep Bs Ag, Hep B core Ab, Hep C Ab- all negative (*no PT/PTT were sent then). *Patient left ER AMA then. 06/21/17: WBC 15.9 (86S/1B/6L/4M/2E/1 Baso), H/H 12.1/35.1, MCV 96, *PLT 1171, PT 15.0, INR 1.43, glucose 96, BUN/Cr 72/3.2, GFR 19, Na 131, K 4.8, HCO3 13, AG 18, Ca2+ 10, albumin 3.5, globulin 3.9, TBil 14.5 (*fracs pending), alk phos 692 , AST 451, ALT 240, lactate 1.9 06/21/17: U/A- hazy, judith, 1.020, 6.0, 3-5 WBC, few granular casts, few bact, mod amorph, large Hgb, + icto, 30+ protein, 4.0 urobil, neg nitrite, trace esterase. 06/21/17: *MELD- [place] 31, UNOS 31. 06/21/17: *[facility] discriminant function 28.3. 06/21/17: EKG- NSR @ 69, normal axis, LAD, low voltage limb leads, PRWP. 06/21/17: CHEST XRAY, PA AND LATERAL- No evidence for acute disease. Lung hyperinflation.No cardiomegaly. No infiltrate or effusion. Post CABG. Healing posterior right 8th rib fracture. No acute rib fractures. 06/21/17: CT ABDOMEN AND PELVIS WITHOUT CONTRAST- Significantly limited examination due to the lack of IV contrast (*low GFR). * However, there is suggestion of a 5 cm mass lesion within the lateral aspect of the right lobe of the liver. The liver has extensive subcapsular nodularity and decreased size which is nonspecific, but could be indicative of chronic hepatocellular disease, such as cirrhosis. Recommendation is for correlation with abdominal MRI with contrast for further characterization of the suspected hepatic mass lesion. Gallbladder wall thickening with pericholecystic fluid. There is a solitary calculus. Cholecystitis cannot be excluded. Consider correlation with ultrasound. Atrophic right kidney & normal sized left kidney, without hydronephrosis or nephrolithiasis. Ozxhj-fy-wedtexki amount of free fluid within the abdomen and pelvis (LUQ) of uncertain etiology. 06/21/17: US ABDOMEN LIMITED- 1. Above findings are consistent with liver cirrhosis with *suspicion of partial thrombus in the central portal vein and probably complete thrombosis in the right and left portal veins, which are not seen with color Doppler imaging. 2. *No discrete liver mass appreciated, including in the right lobe of the liver, where on CT scan in a 5 cm mass lesion was suspected. 3. Diffuse gallbladder wall thickening, edema, pericholecystic fluid, and small gallstone are noted. Findings are nonspecific in the setting of hepatic dysfunction and ascites. Negative ultrasonic Burnett sign. Close clinical correlation is requested. No dilated ducts seen. CBD 3 mm. * 4. Atrophic right kidney. *Given the above findings of suspected portal venous thrombosis and potentially discrepant findings between the CT scan and this ultrasound in regards to hepatic mass lesion, further more sensitive assessment with a dynamic MRI scan with contrast is recommended. *I discussed this with Dr. Goodman, of [facility], on 06/21/17. *The patient's low GFR prohibits MRI with gadolinium, so she advised MRI without gadolinium to r/o portal vein thrombus. *The patient probably has alcoholic hepatitis, rule out cirrhosis. His MELD score was markedly elevated on admission. His weight loss was noted. Additionally, it is difficult to interpret his imaging studies, because of the lack of IV contrast, due to his CKD. His renal insufficiency is probably chronic in nature, with a less likely component of HRS. There is no hydronephrosis. Noncontrast CT on admission was suggestive of a 5 cm right hepatic mass, however none was seen on sono. However, there was a question of a portal vein thrombosis on sono, which I reviewed with Dr. Goodman, of [facility], who advised an MRI (albeit without IV contrast), to reassess the portal veins. The thrombocytosis is noted- rule out iron deficiency, rule out MDS, rule out underlying neoplasm. 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 The mild leukocytosis is noted, but the patient does not appear septic. He does have cholelithiasis, but most likely, this is incidental in nature. Doubt cholecystitis. He has no dilated ducts. *SUGGEST: Clears po, then NPO after 11:59 p.m. on 06/21/17 for EGD (r/o varices)/ colonoscopy on 06/22/17. GoLytely 1 gallon po tonight over 4-5 hours. The risks and benefits of EGD/colonoscopy were discussed with the patient in the presence of his daughter, Cindy Martins, & he agreed to proceed. *MRI of abdomen without gadolinium (low GFR), tonight, to check portal vein. *Would carefully resume ASA 81 mg daily for now, with history of ASHD/CABG x 3 1991/TIA & thrombocytosis. *Add PPI daily (Protonix 40 mg IV daily for now). Continue to hole Provastatin with elevated LFTs. *Advise checking AFP, CEA, Fe, TIBC, ferritin, B12, RBC folate, MMA, EPI, AMA, Hep Bs Ab. *Check NH3 level. *See if there is tappable ascites per IR- if so, needs abdominal tap & send ascitic fluid for gram stain, C&S (in BC bottles to increase yield), cell count, cytology, BF protein & BF albumin (& simultaneous serum albumin to check SAAG). *Check urine C&S, Claudia & FENa (if + HRS, would expect low Claudia & low FENa). * Advise renal consult (low GFR) & hematology consult (thrombocytosis). Workup of microscopic hematuria & abnormal urinary sediment per medical team. DVT prophylaxis with mechanical ALPS. *Check TFTs with TSH. *Thiamine, folate, MVI. 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 Ativan as needed. Avoid hepatotoxins, NSAIDS & keep Tylenol use to < 2g daily. If cirrhotic, will need outpatient follow-up for hepatoma surveillance, with AFP/RUQ sono Q 6 months. Advise annual flu shot, Pneumovax if applicable, & semi-elective Hep A & B vaccination, if not immune. *May add Questran 4g po TID 1/2 hour before meals, regarding pruritus. Consider SW & psychiatric input. *The above findings and recommendations were discussed with the patient, the patient's daughter, Cindy Martins, & the medical housestaff. The patient's daughter, Cindy, is aware of the numerous issues & significant underlying disease. Further GI recommendations to follow, depending on clinical course. Problem List: 1. Abnormal LFTs 2. Alcoholic hepatitis 3. Cirrhosis 4. Weight loss 5. Guaiac positive stools 6. Cholelithiasis 7. Renal insufficiency Copies To: ROLAN DAVEY,RANULFO; ALLY DAVEY,JAMES Lux. Consult Acknowledgment - Thank you for your consult request.
--- NOTE | 2017-06-21 17:53 | MRI REPORT ---
EXAMINATION: MR ABDOMEN WITHOUT CONTRAST CLINICAL INFORMATION: Jaundice. Weight loss. Alcoholic cirrhosis. Presumptive diagnosis of portal vein thrombosis. COMPARISON: Ultrasound of the abdomen dated 06/21/2017. CT scan of the abdomen and pelvis dated 06/21/2017. TECHNIQUE: An MRI scan of the abdomen was performed noncontrast using multiple imaging sequences and imaging planes. FINDINGS: LIVER: The liver is cirrhotic with atrophy of the right lobe and hypertrophy of the caudate lobe and left lobe. Nodular surface contour and small volume ascites are seen. There is markedly heterogeneous liver parenchymal signal and there are innumerable ill-defined nodules seen throughout the right and left lobes, most concentrated in the right lobe. Findings are highly suspicious for multifocal hepatocellular carcinoma. There is enlargement and abnormal signal seen within the main, right and left portal veins. On [id number]-[id number] imaging, no flow within the portal venous system is seen and findings are consistent with diffuse portal venous thrombosis. Given the enlargement of the veins, tumor thrombus is suspected. The intrahepatic IVC and the intrahepatic veins are attenuated but are patent. GALLBLADDER, BILIARY TREE: Gallbladder is well distended and within normal limits. No intrahepatic or extrahepatic ductal dilatation is seen. Common bile duct is normal, measuring 0.4 cm in diameter. PANCREAS: Normal. No ductal dilatation, mass, or surrounding stranding. SPLEEN: Normal size and appearance. Splenic vein difficult to visualize but where visualized appears to be patent. ADRENAL GLANDS AND KIDNEYS: Adrenal glands normal. The right kidney is atrophic. The left kidney is normal in size. Bilaterally, small subcentimeter sized T2 bright masses are seen, most consistent with cysts. No focal suspicious mass, hydronephrosis, or perinephric stranding. BOWEL LOOPS: Multilevel moderate degenerative changes in the thoracolumbar spine with multiple posterior disc osteophyte complex is seen indenting the thecal sac. LYMPHOVASCULAR STRUCTURES: Abdominal aorta normal in caliber. No periaortic collections. Please see liver section for assessment of the portal venous system and the hepatic veins. Incidentally noted is a retroaortic left renal vein. No abdominal adenopathy. Small volume ascites is seen. BONES: Multilevel moderate degenerative changes are seen in the thoracolumbar spine with multiple areas of posterior disc osteophyte complexes seen indenting the thecal sac. There may be associated spinal stenosis at the L3-L4 level. IMPRESSION: 1. Nodular cirrhotic liver with innumerable hepatic masses and small volume ascites seen. While not definitive by imaging given the lack of intravenous contrast, findings are highly suspicious for multifocal hepatocellular carcinoma. 2. Enlarged main, right and left portal veins with no vascular flow demonstrated. 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 3. Atrophic right kidney. 4. Bilateral small subcentimeter sized renal masses, most likely cysts. 5. Multilevel moderate degenerative changes in the thoracolumbar spine with posterior disc osteophyte complexes seen at multiple levels. Associated spinal stenosis at the L3-L4 level is suspected. Findings discussed with Dr. Kristina Marte 06/21/2017, 5:45 PM.
--- NOTE | 2017-06-21 20:30 | History & Physical ---
STERLING MONTALVO 06/21/172028: General Information and HPI MD Statement: I have seen and personally examined PAULINE EDUARDO and documented this H&P. The patient is a 76 year old M who presented with a patient stated chief complaint of Jaundice, weight loss Source of Information: patient, family (pt's dtr, Cindy) Exam Limitations: poor historian, limited records History of Present Illness: 76-year-old gentleman from home current smoker with past medical history significant for coronary artery disease S/P CABG (1995), HTN, Hyperlipidemia, chronic alcohol dependency (no history of seizures or DT) here for evaluation of yellowish discoloration of eyes and skin. He was initially sent to [facility] ED on 06/18 by his PCP for abnormal lab values. He left AMA from the ED as he want to attend his granddaughter's graduation which was on the 06/20/17. Per his daughter who was at bedside, [facility] got lost and [facility] on his way to the graduation. His daughter reports that recently she has noticed yellowish discoloration of his skin and eyes. Patients reports that he has been having dark stools since the past one month and urinary incontinence. Endorses 40ILbs weight loss over the past nine months, poor PO intake (eats max two meal a day which sometimes just consists of coffee and toast). Also endorses easy brusialbity lately. Since the loss of his in he has been drinking daily. 4-5 glasses of Scotch diluted with water. States his last drink was two weeks ago. On interview he denies nausea, vomiting, abdominal pain or distention, itching, dysuria, active bleeding, BRBR, fever, chills, pale colored stools. Per patient his PCP had discontinued all his medication. Allergies/Medications Allergies: Coded Allergies: NO KNOWN ALLERGIES (UNKNOWN 06/21/17) Home Med list Aspirin (Aspirin*) 81 MG TAB.CHEW 1 TAB PO DAILY HEART HEALTH (Reported) Folic Acid 1 MG TABLET 1 MG PO DAILY supplement Heparin Sodium,Porcine/D5w (Heparin-D5w 25,000 Unit/500 Ml) 25,000 UNIT/500 ML ( 50 UNIT/ML) IV.SOLN 25,000 UNITS IV Q24 thrombosis Multivitamin (One Daily Multivitamin) 1 EACH TABLET 1 TAB PO DAILY supplement Pantoprazole Sodium (Protonix) 40 MG TABLET. 40 MG IV DAILY reflux Thiamine HCl (Vitamin B-1) 100 MG TABLET 100 MG PO DAILY supplement Compliance With Home Meds: UNKNOWN Past History Travel History Traveled to [place] past 21 day No Medical History Blood Transfusion Hx: No Neurological: TIA EENT: NONE Cardiovascular: CAD, hypertension, hyperlipidemia, TRIPLE BYPASS 1991 CABG Respiratory: NONE (hyperinflated lungs on CXR), COPD Gastrointestinal: NONE Hepatic: cholelithiasis, jaundice, elevated LFTs- EtOH Renal: chronic kidney disease, KIDNEY FAILURE Musculoskeletal: GENERAL BODY ACHES Psychiatric: depression (since 2nd 09/2016) Endocrine: vitamin D deficiency Blood Disorders: thrombocytosis Cancer(s): NONE BRICK CLEANER/Reproductive: NONE Isolation History: Standard Surgical History Surgical History: CABG (x 3, 1991) Past Family/Social History Family History Relations & Conditions if any MOTHER (primary site unknown). , Age 60+; Cause: Cancer. FATHER, , Age 59; Cause: Myocardial infarction. Psychosocial History Where do you live? Home Who Do You Live With? self Services at Home: None Primary Language: Welsh Smoking Status: Current Everyday Smoker ETOH Use: heavy use Illicit Drug Use: denies illicit drug use Living Will? yes Power of Elevator Inspector/HCP? no Other Social History: from 1st in 1973. Twin dtrs by 1st - [employer]. 2nd 1976, who 09/2016. Depressed since. 40 pk yr cigarette smoker (resumed 1/2 ppd in 09/2016). Long hx EtOH abuse- 5 scotches/day. No drugs or IVDA. 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 Lives alone. Functional Ability ADLs Independent: dressing, eating, toileting, bathing. Ambulation: independent IADLs Independent: shopping, housework, finances, food prep, telephone, transportation , medication admin. 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 Denies: chills, diaphoresis, fever, malaise, unexplained weight loss. Cardiovascular: Denies: chest pain, edema, orthopena, palpitations, peripheral edema, syncope. Respiratory: Denies: cough, hemoptysis, orthopnea, short of breath, sputum production, stridor, wheezing. GI: Denies: abdominal pain, bloating, constipation, diarrhea, distention, bowel incontinence, melena, nausea, bloody stool, changes in stool, vomiting, steatorrhea. Exam & Diagnostic Data Last 24 Hrs of Vital Signs/I&O Vital Signs Date Time Temp Pulse Resp B/P B/P Pulse O2 O2 Flow FiO2 Mean Ox Delivery Rate 06/21 1800 97.3 73 18 124/60 06/21 1747 97.3 73 20 124/60 97 Room Air 06/21 1425 98.7 72 18 119/64 06/21 1421 98.7 72 18 119/64 97 Room Air 06/21 1143 97.4 70 18 147/65 98 Room Air 06/21 0856 98 Room Air 06/21 0825 96.6 84 18 120/59 100 Room Air Intake & Output 06/21 1600 06/21 0800 06/21 0000 Intake Total Output Total Balance Patient 141 lb Weight Weight Reported by Patient Measurement Method Physical Exam General Appearance Alert, Oriented X3, Cooperative, No Acute Distress Skin yellowish tinge to skin HEENT Atraumatic, PERRLA, dry mucous membranes, icterus Neck Supple, No JVD, No thryomegaly Lymphatic Axillary nl, Cervical nl Cardiovascular Regular Rate, Normal S1, Normal S2 Lungs Clear to Auscultation, Normal Air Movement Abdomen Normal Bowel Sounds, Soft, No Tenderness, No Hepatospenomegaly, No Masses Neurological Normal Speech, Strength at 5/5 X4 Ext, Normal Tone, Sensation Intact, Cranial Nerves 3-12 NL Extremities No Edema, Normal Pulses Last 24 Hrs of Labs/Vijay: Laboratory Tests 06/21/17 1540: Urinalysis MOD H, Urine Color JUDITH, Urine Clarity HAZY H, Urine pH 6.0, Ur Specific [place] 1.020, Urine Protein 30 H, Urine Ketones NEG, Urine Nitrite NEG, Urine Bilirubin POS@ICTO H, Urine Urobilinogen 4.0 H, Ur Leukocyte Esterase TRACE H, Ur Microscopic SEDIMENT EXAMINED, Urine WBC 3-5 H, Ur Epithelial Cells MOD H, Urine Bacteria FEW H, Granular Casts FEW H, Urine Hemoglobin LARGE H, Urine Glucose NEG 06/21/17 1540: Lactic Acid 1.9, Ur Random Creatinine 122.8, Ur Random Sodium 8 L, Ur Random Potassium 49.2, Fraction Sodium Excret 0.2 06/21/17 0848: Anion Gap 18 H, Estimated GFR 19 L, BUN/Creatinine Ratio 22.5, Glucose 96, Calcium 10.0, Total Bilirubin 14.5 H, Direct Bilirubin 12.6 H, AST 451 H, ALT 240 H, Alkaline Phosphatase 692 H, Total Protein 7.4, Albumin 3.5, Globulin 3.9, Albumin/Globulin Ratio 0.9 L, PT 15.0 H, INR 1.43 H, CBC w Diff MAN DIFF ORDERED, RBC 3.66 L, MCV 96.0 H, MCH 33.2 H, RDW 15.9 H, MPV 7.6, Segmented Neutrophils 86 H, Band Neutrophils 1, Lymphocytes 6 L, Monocytes 4, Eosinophils 2, Basophils 1, Platelet Estimate INCREASED, Anisocytosis 1+, Target Cells , PUBS MCHC 34.5, Retic Count 3.37 H 06/21/17 0829: EPI Titer Pending, Anti-Nuclear Antibody Pending Microbiology 06/21 1937 URINE ROUT: Urine Culture - COLB Diagnostic Data EKG Results NSR, QTc 450 CXR Results FINDINGS: The cardiac silhouette is not enlarged. Intact midline sternal wires are present. The mediastinal and hilar contours are unremarkable. There are neither pleural effusions nor pneumothoraces. There are no consolidations. The lungs are hyperinflated. No acute rib fractures are present. There is a healing posterior right eighth rib fracture present. IMPRESSION: No evidence for acute disease. Lung hyperinflation. Other Results SERVICE DATE: 06/21/17 EXAM TYPE: US - US-LIMITED ABDOMEN FINDINGS: PANCREAS: The pancreatic body and portions of the head and tail are visualized and appear unremarkable. LIVER: The liver is diffusely heterogeneous in echotexture, limiting assessment for mass lesion. The liver contour is lobulated and overall size of the liver is diminished, consistent with liver cirrhosis. Small amount of perihepatic ascites is seen. No definite discrete liver mass is appreciated. With color Doppler imaging, the intrahepatic IVC and the 3 hepatic veins are patent. The main portal vein in the maykel hepatis is partially patent with suspicion of nonocclusive thrombus seen. The more central portal vein and the right and left portal veins are poorly visualized and do not demonstrate flow with color Doppler imaging, raising the suspicion of portal venous thrombosis. GALLBLADDER: There is diffuse gallbladder wall thickening and gallbladder edema, which is a nonspecific finding in the setting of ascites and hepatic dysfunction. There is at least one mobile echogenic gallstone within the gallbladder. No sonographic Burnett's sign is elicited. COMMON BILE DUCT: Poorly visualized but no abnormally dilated common bile duct is seen. On one image, common bile duct is partially imaged, measuring 0.3 cm. RIGHT KIDNEY: Diffuse atrophy of the right kidney is noted with renal cortical thinning and increased echogenicity seen. No hydronephrosis. No renal calculi or focal parenchymal lesions. The kidney measures 9.4 cm in maximum dimension. FREE FLUID: Small volume of ascites is seen in the right upper quadrant. IMPRESSION: 1. Above findings are consistent with liver cirrhosis with suspicion of partial thrombus in the central portal vein and probably complete thrombosis in the right and left portal veins, which are not seen with color Doppler imaging. 2. No discrete liver mass appreciated, including in the right lobe of the liver, where on CT scan in a 5 cm mass lesion was suspected. 3. Diffuse gallbladder wall thickening, edema, pericholecystic fluid, and small gallstone are noted. Findings are nonspecific in the setting of hepatic dysfunction and ascites. Close clinical correlation is requested. 4. Atrophic right kidney. SERVICE DATE: 06/21/17 EXAM TYPE: CAT - CT ABD & PELVIS W/O IV CONTRAST FINDINGS: There is mild dependent bibasilar atelectasis. The visualized lung bases are otherwise clear. The visualized portions of the heart are unremarkable. The liver is of overall normal attenuation with subcapsular nodularity and slightly decreased size. There is suggestion of a mass lesion within the lateral aspect of the right lobe of the liver measuring approximately 5 cm. This is best demonstrated on image 19/90. There is a hwifw-wf-qwrqepuc amount of free fluid overlying the right lobe of the liver. The gallbladder is mildly distended. There is a small calculus measuring approximately 4 mm. There is likely wall thickening with mild adjacent pericholecystic fluid. The spleen, pancreas, adrenal glands are unremarkable. There is a small amount of free fluid within the left upper quadrant. The left kidney is of normal size and attenuation with scattered vascular calcifications. There is no hydronephrosis. There is an atrophic right kidney with diffuse cortical thinning. There is no hydronephrosis or nephrolithiasis. There is no abdominal free fluid. There is neither mesenteric nor retroperitoneal lymphadenopathy. Normal unopacified loops of small and large bowel are identified. There is a rjjjf-dd-hsomltfr amount of pelvic free fluid. The urinary bladder is unremarkable. There is neither pelvic nor inguinal lymphadenopathy. Bone windows: There is height loss and concavity to the superior endplate to L3. 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 There is mild disc height loss within the lower lumbar spine. IMPRESSION: Significantly limited examination due to the lack of IV contrast. However, there is suggestion of a mass lesion within the lateral aspect of the right lobe of the liver. The liver has extensive subcapsular nodularity and decreased size which is nonspecific, but could be indicative of chronic hepatocellular disease, such as cirrhosis. Recommendation is for correlation with abdominal MRI with contrast for further characterization of the suspected hepatic mass lesion. Gallbladder wall thickening with pericholecystic fluid. There is a solitary calculus. Cholecystitis cannot be excluded. Consider correlation with ultrasound. Atrophic right kidney. Rlnqr-we-arhowasm amount of free fluid within the abdomen and pelvis of uncertain etiology. Assessment/Plan Assessment: 76-year-old gentleman from home current smoker with past medical history significant for coronary artery disease S/P CABG (1995), HTN, Hyperlipidemia, chronic alcohol dependency (no history of seizures or DT) here for evaluation of yellowish discoloration of eyes and skin, weight loss and dark colored stools. Labs on admission significant for : WBC 15.9 (86S/1B/6L/4M/2E/1 Baso), H/H 12.1/ 35.1, MCV 96, *PLT 1171, PT 15.0, INR 1.43, glucose 96, BUN/Cr 72/3.2, GFR 19, Na 131, K 4.8, HCO3 13, AG 18, Ca2+ 10, albumin 3.5, globulin 3.9, TBil 14.5 (* fracs pending), alk phos 692, AST 451, ALT 240, lactate 1.9 U/A- hazy, judith, 1.020, 6.0, 3-5 WBC, few granular casts, few bact, mod amorph, large Hgb, + icto , 30+ protein, 4.0 urobil, neg nitrite, trace esterase. Labs on 06/18/17: WBC 15.6 (89S/1B/3L/5M/1E/1 Baso), H/H 11.6/33.1, MCV 94.7, RDW 16.4, *PLT 1249, glucose 96, BUN/Cr 59/2.7, GFR 23, Na 132, K 5.2, HCO3 12, AG 18, Ca2+ 10.6, albumin 3.8, globulin 3.8, TBil 14 (DBil 12.6), alk phos 654, AST 293, ALT 193; Hep A Ab, Hep Bs Ag, Hep B core Ab, Hep C Ab- all negative (* no PT/PTT were sent then). *Patient left ER AMA then. As Ranked By This Provider Problem List: 1. Decompensation of cirrhosis of liver Assessment/Plan mostly likely secondary to chronic alcohol use, there is also questionable lesion on right lobe of liver on CT abd/pelvis. MELD- score calculated to 31, [facility] discriminant function 28.3. will obtain GI consult follow up abdominal US to see if ascitis is present and is amenable to tap. No clinical indication of ascities. continue to trend hepatic function panel 2. Total bilirubin, elevated Assessment/Plan leucocytosis with no right upper quadrant tenderness and no fever will monitor closely for cholangitis will folow up lactic acid 3. Wgmap-cm-meamsty kidney injury Assessment/Plan d/d include dehydration vs hepatorenal syndrome will hydrate with IVF Will obtain UA and urine lytes 4. Thrombocytosis Assessment/Plan d/d include reactive thrombocytosis vs iron deficiency anemia vs malignancy will continue to trend hematology- oncology consult. 5. Alcohol dependence Assessment/Plan iv ativan per CIWA 6. DVT prophylaxis Assessment/Plan ALPS 7. DNR (do not resuscitate) 8. DNI (do not intubate) Core Measures/Miscellaneous Acute Coronary Syndrome ACS Diagnosis: No Cerebrovascular Accident CVA/TIA Diagnosis: No Congestive Heart Failure CHF Diagnosis: No VTE (View Protocol) VTE Risk Factors: Age > 40, Smoking No Mech VTE prophylaxis d/t: No contraindications No VTE Pharm Prophylaxis d/t: Blood coag disorder VTE Diagnosis: No VTE Type: NONE VTE Confirmed by (Test): NONE Sepsis (View Protocol) Severe Sepsis Present: No Septic Shock Septic Shock Present: No Miscellaneous Documentation Attending Case Discussed With: JAMES CANALES MD Primary Care Physician: RANULFO GONGORA MD Patient sees these Specialists none Level of Patient Care: General Medicine ALLY DAVEYJAMES 06/22/17 0902: Attending MD Review Statement Attending Statement Attending MD Statement: examined this patient, discuss w/resident/PA/SOAP GRINDER, agreed w/resident/PA/SOAP GRINDER, reviewed EMR data (avail), discussed with nursing, discussed with case mgmt, reviewed images Attending Assessment/Plan: 76-year-old male with past medical history of hypertension, coronary artery disease status post bypass and CK D with baseline creatinine of 1.5-2. He is here with multiple medical issues. He made an ED visit on 06/18 and was advised to get admitted but left AMA to attend his granddaughter's graduation and came back. Among his many medical problems include 1) Severely elevated liver enzymes with jaundice and possibility of a mass lesion in the liver. I suspect that he has underlying cirrhosis given the numbers and given the nodular shrunken appearance on CT scan. We will trend his liver enzymes closely, keep an eye on MELD score. He is not encephalopathic and has no asterixis but will have to avoid all hepatotoxic meds, watch his INR and his bili. 2) He does have leukocytosis but no right upper quadrant tenderness and no fever. Will have to make sure there is no cholangitis and get an ultrasound stat. We will also make sure that if he has any kind of ascites we'll get a diagnostic tap and send for Gram stain culture cell count, protein albumin and cytology. Also get a UA and chest x-ray. 3) severe thrombocytosis with platelet count over the million. I think it's all likely reactive secondary to what's going on in his liver and possibly a neoplastic process. We will trend it and keep a low threshold to get hematology oncology involved. 4) given his anion gap acidosis will check a lactate to make sure there is no lactic acidosis and the ultrasound of the abdomen should also help us make sure there is no cholangitis. 5)NGOZI on CKD. I think it's all volume depletion Will hydrate him, check a renal ultrasound to make sure he is not obstructed, check urine lites and follow his numbers closely. When his creatinine gets better and his GFR gets better with get an MRI with deb to clarify the hepatocellular process. 6) Alps for DVT prophylaxis. Guaiac all stools and follow closely. 5)NGOZI on CKD. I think it's all volume depletion Will hydrate him, check a renal ultrasound to make sure he is not obstructed, check urine lites and follow his numbers closely. When his creatinine gets better and his GFR gets better with get an MRI with deb to clarify the hepatocellular process. 6) Alps for DVT prophylaxis. Guaiac all stools and follow closely.
--- NOTE | 2017-06-21 20:34 | Event Note ---
Event Note Event Note: Abdominal MRI came back showing complete occlusion of both the right and left portal veins and nodularity of the liver suspicous for hepatocellular carcinoma. The portal veins are also enlarged and suspicious for tumor thrombus. I informed Dr. Alfonso who suggests we anticoagulate the patient and then start the process of transferring him to [place] for futher mgt. I also spoke with Vascular surgeon Dr. Cárdenas who agrees with anticoagulating the patient. I spoke with the GI/Liver specialist at [place]-Dr. Head through the [facility] and she is willing to take the patient but for now they have no bed. They will call the floors once a bed is available, late tonight or very early tomorrow morning to give a bed number and initiate the transfer. Patient has been informed by both Dr. Cuevas and I, and is ok with plans to transfer to [place]. He says he will inform his daughter who has already left for home. IV heparin started; stool guaic negative. Per Dr. Alfonso, Golytely discontinued as patient will no longer require a lower scope, however keep patient NPO for possible endoscopy in AM to evaluate for varices if patient does leave for [place] for some reason. Emtela ready and in the chart.
--- NOTE | 2017-06-21 20:48 | Event Note ---
Event Note Event Note: Stool guaiac negative
--- NOTE | 2017-06-21 21:13 | Discharge Summary ---
Visit Information Visit Dates Admission Date: 06/21/17 Discharge Date: 06/22/17 Hospital Course Course Attending Physician: ALLY DAVEY,JAMES Ramirez Primary Care Physician: ROLAN DAVEY,ATKINSSTEVEN Hospital Course: 76-year-old gentleman from home current smoker with past medical history significant for coronary artery disease S/P CABG (1995), HTN, Hyperlipidemia, chronic alcohol dependency (no history of seizures or DT) here for evaluation of yellowish discoloration of eyes and skin, weight loss and dark colored stools. He was initially sent to [place] ED on 06/18 by his PCP for abnormal lab values. He left AMA from the ED as he wanted to attend his granddaughter's graduation which was on the 06/20/17. Per his daughter who was at bedside, he got lost and ended up in [place] ( unusual for him) on his way to the graduation. Labs on admission significant for : WBC 15.9 (86S/1B/6L/4M/2E/1 Baso), H/H 12.1/ 35.1, MCV 96, *PLT 1171, PT 15.0, INR 1.43, glucose 96, BUN/Cr 72/3.2, GFR 19, Na 131, K 4.8, HCO3 13, AG 18, Ca2+ 10, albumin 3.5, globulin 3.9, TBil 14.5 , alk phos 692, AST 451, ALT 240, lactate 1.9 U/A- hazy, judith, 1.020, 6.0, 3-5 WBC, few granular casts, few bact, mod amorph , large Hgb, 30+ protein, 4.0 urobil, neg nitrite, trace esterase. EKG- NSR @ 69, normal axis, LAD Labs on 06/18/17: WBC 15.6 (89S/1B/3L/5M/1E/1 Baso), H/H 11.6/33.1, MCV 94.7, RDW 16.4, *PLT 1249, glucose 96, BUN/Cr 59/2.7, GFR 23, Na 132, K 5.2, HCO3 12, AG 18, Ca2+ 10.6, albumin 3.8, globulin 3.8, TBil 14 (DBil 12.6), alk phos 654, AST 293, ALT 193; Hep A Ab, Hep Bs Ag, Hep B core Ab, Hep C Ab- all negative (* no PT/PTT were sent then). *Patient left ER AMA then. CHEST XRAY, PA AND LATERAL- No evidence for acute disease. Lung hyperinflation.No cardiomegaly. No infiltrate or effusion. Post CABG. Healing posterior right 8th rib fracture. No acute rib fractures. CT ABDOMEN AND PELVIS WITHOUT CONTRAST: suggestion of a 5 cm mass lesion within the lateral aspect of the right lobe of the liver. The liver has extensive subcapsular nodularity and decreased size which is nonspecific, but could be indicative of chronic hepatocellular disease, such as cirrhosis. US ABDOMEN LIMITED: suspicion ofpartial thrombus in the central portal vein and probably complete thrombosis in the right and left portal veins, which are not seen with color Doppler imaging. Diffuse gallbladder wall thickening, edema, pericholecystic fluid, and small gallstone are noted. Findings are nonspecific in the setting of hepatic dysfunction and ascites. Negative ultrasonic Burnett sign He was admitted to the General medicine floor and the follow issues was addressed: Elevated Transaminitis Mostly likely secondary to decompensated cirrhosis of the liver secondary to chronic alcohol use. MELD- score was calculated to be 31 and Maddrey discriminant function 28.3. Initially recommended to prep patient for endoscopy and colonscopy. Workup of Fe, TIBC, B12 levels within normal limits. Hep Bs Ab negative, NH3 level was not elevated. Abdominal MRI was showed nodular cirrhotic liver with innumerable hepatic masses and small volume ascites seen with complete occlusion of both the right and left portal veins and nodularity of the liver suspicous for hepatocellular carcinoma. The portal veins were also enlarged and suspicious for tumor thrombus. GI and vasucular recomended anticoagulation. Guiac was negative and IV heparin and low dose ASA was started per Vascular surgeon's recommendation. Decision was made to transfer patient to [facility] for transfer for treatment of the hepatocellular carcinoma with possible liver biopsy and chemoembolization if appropriate. [facility] was contacted on 06/21/[address] Head is the accepting physician at [facility]. At 06/22/17 2137 hrs, remote encoding operations supervisor resident physician notified about availability of bed at [facility], 9th floor, room number 938 (floor tel number [phone]). Patient transfered immediately. Diffuse gallbladder wall thickening, edema, pericholecystic fluid, and small gallstone on abdominal US was noted and thought to be an incidental finding. Jrdpg-pm-[id number] kidney injury Thought to be secondary to dehydration vs hepatorenal syndrome. Hydration with IVF was started and creatinine showed downward trend on day 2. Thrombocytosis Differentials consiidered was reactive thrombocytosis vs iron deficiency anemia vs malignancy Plan was to continue to trend. Hematology- oncology was consulted. 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 LIVER: The liver is diffusely heterogeneous in echotexture, limiting assessment for mass lesion. The liver contour is lobulated and overall size of the liver is diminished, consistent with liver cirrhosis. Small amount of perihepatic ascites is seen. No definite discrete liver mass is appreciated. With color Doppler imaging, the intrahepatic IVC and the 3 hepatic veins are patent. The main portal vein in the maykel hepatis is partially patent with suspicion of nonocclusive thrombus seen. The more central portal vein and the right and left portal veins are poorly visualized and do not demonstrate flow with color Doppler imaging, raising the suspicion of portal venous thrombosis. GALLBLADDER: There is diffuse gallbladder wall thickening and gallbladder edema, which is a nonspecific finding in the setting of ascites and hepatic dysfunction. There is at least one mobile echogenic gallstone within the gallbladder. No sonographic Burnett's sign is elicited. COMMON BILE DUCT: Poorly visualized but no abnormally dilated common bile duct is seen. On one image, common bile duct is partially imaged, measuring 0.3 cm. RIGHT KIDNEY: Diffuse atrophy of the right kidney is noted with renal cortical thinning and increased echogenicity seen. No hydronephrosis. No renal calculi or focal parenchymal lesions. The kidney measures 9.4 cm in maximum dimension. FREE FLUID: Small volume of ascites is seen in the right upper quadrant. IMPRESSION: 1. Above findings are consistent with liver cirrhosis with suspicion of partial thrombus in the central portal vein and probably complete thrombosis in the right and left portal veins, which are not seen with color Doppler imaging. 2. No discrete liver mass appreciated, including in the right lobe of the liver, where on CT scan in a 5 cm mass lesion was suspected. 3. Diffuse gallbladder wall thickening, edema, pericholecystic fluid, and small gallstone are noted. Findings are nonspecific in the setting of hepatic dysfunction and ascites. Close clinical correlation is requested. 4. Atrophic right kidney. SERVICE DATE: 06/21/17 EXAM TYPE: CAT - CT ABD & PELVIS W/O IV CONTRAST FINDINGS: There is mild dependent bibasilar atelectasis. The visualized lung bases are otherwise clear. The visualized portions of the heart are unremarkable. The liver is of overall normal attenuation with subcapsular nodularity and slightly decreased size. There is suggestion of a mass lesion within the lateral aspect of the right lobe of the liver measuring approximately 5 cm. This is best demonstrated on image 19/90. There is a qoxxj-yd-awhhtsqa amount of free fluid overlying the right lobe of the liver. The gallbladder is mildly distended. There is a small calculus measuring approximately 4 mm. There is likely wall thickening with mild adjacent pericholecystic fluid. The spleen, pancreas, adrenal glands are unremarkable. There is a small amount of free fluid within the left upper quadrant. The left kidney is of normal size and attenuation with scattered vascular calcifications. There is no hydronephrosis. There is an atrophic right kidney with diffuse cortical thinning. There is no hydronephrosis or nephrolithiasis. There is no abdominal free fluid. There is neither mesenteric nor retroperitoneal lymphadenopathy. Normal unopacified loops of small and large bowel are identified. There is a gnnkv-dz-rwsmvkem amount of pelvic free fluid. The urinary bladder is unremarkable. There is neither pelvic nor inguinal lymphadenopathy. Bone windows: There is height loss and concavity to the superior endplate to L3. 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 There is mild disc height loss within the lower lumbar spine. IMPRESSION: Significantly limited examination due to the lack of IV contrast. However, there is suggestion of a mass lesion within the lateral aspect of the right lobe of the liver. The liver has extensive subcapsular nodularity and decreased size which is nonspecific, but could be indicative of chronic hepatocellular disease, such as cirrhosis. Recommendation is for correlation with abdominal MRI with contrast for further characterization of the suspected hepatic mass lesion. Gallbladder wall thickening with pericholecystic fluid. There is a solitary calculus. Cholecystitis cannot be excluded. Consider correlation with ultrasound. Atrophic right kidney. Jinmh-ta-[id number] amount of free fluid within the abdomen and pelvis of uncertain etiology. SERVICE DATE: 06/21/17 EXAM TYPE: MRI - MRI-ABDOMEN FINDINGS: LIVER: The liver is cirrhotic with atrophy of the right lobe and hypertrophy of the caudate lobe and left lobe. Nodular surface contour and small volume ascites are seen. There is markedly heterogeneous liver parenchymal signal and there are innumerable ill-defined nodules seen throughout the right and left lobes, most concentrated in the right lobe. Findings are highly suspicious for multifocal hepatocellular carcinoma. There is enlargement and abnormal signal seen within the main, right and left portal veins. On vbil-xm-yyfepa imaging, no flow within the portal venous system is seen and findings are consistent with diffuse portal venous thrombosis. Given the enlargement of the veins, tumor thrombus is suspected. The intrahepatic IVC and the intrahepatic veins are attenuated but are patent. GALLBLADDER, BILIARY TREE: Gallbladder is well distended and within normal limits. No intrahepatic or extrahepatic ductal dilatation is seen. Common bile duct is normal, measuring 0.4 cm in diameter. PANCREAS: Normal. No ductal dilatation, mass, or surrounding stranding. SPLEEN: Normal size and appearance. Splenic vein difficult to visualize but where visualized appears to be patent. ADRENAL GLANDS AND KIDNEYS: Adrenal glands normal. The right kidney is atrophic. The left kidney is normal in size. Bilaterally, small subcentimeter sized T2 bright masses are seen, most consistent with cysts. No focal suspicious mass, hydronephrosis, or perinephric stranding. BOWEL LOOPS: Multilevel moderate degenerative changes in the thoracolumbar spine with multiple posterior disc osteophyte complex is seen indenting the thecal sac. LYMPHOVASCULAR STRUCTURES: Abdominal aorta normal in caliber. No periaortic collections. Please see liver section for assessment of the portal venous system and the hepatic veins. Incidentally noted is a retroaortic left renal vein. No abdominal adenopathy. Small volume ascites is seen. BONES: Multilevel moderate degenerative changes are seen in the thoracolumbar spine with multiple areas of posterior disc osteophyte complexes seen indenting the thecal sac. There may be associated spinal stenosis at the L3-L4 level. IMPRESSION: 1. Nodular cirrhotic liver with innumerable hepatic masses and small volume ascites seen. While not definitive by imaging given the lack of intravenous contrast, findings are highly suspicious for multifocal hepatocellular carcinoma. 2. Enlarged main, right and left portal veins with no vascular flow demonstrated. 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 3. Atrophic right kidney. 4. Bilateral small subcentimeter sized renal masses, most likely cysts. 5. Multilevel moderate degenerative changes in the thoracolumbar spine with posterior disc osteophyte complexes seen at multiple levels. Associated spinal stenosis at the L3-L4 level is suspected. 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 Suspected Hepatocellular carcinoma NGOZI on CKD Additional Diagnosis: Cirrhosis Thrombocytosis alcohol dependance Discharge Disposition: other general hospital Discharge Instructions General Discharge Information Code Status: Do Not Resucitate/Intubat Patient's Diet: Regular diet Patient's Activity: as tolerated Follow-Up Instructions/Appts: Will to be transferred to [place] for further management Please follow up with PCP upon discharge Medications at Discharge Discharge Medications: Stop taking the following medications: Nifedipine (Nifedipine ER) 60 MG TABLET.ER ORAL DAILY Qty = 90 Pravastatin Sodium (Pravachol) 40 MG TABLET ORAL DAILY Continue taking these medications: Aspirin (Aspirin*) 81 MG TAB.CHEW 1 Tablet ORAL DAILY Start taking the following new medications: Folic Acid (Folic Acid) 1 MG TABLET 1 Milligram ORAL DAILY Qty = 30 No Refills Thiamine HCl (Vitamin B-1) 100 MG TABLET 100 Milligram ORAL DAILY Qty = 30 No Refills Multivitamin (One Daily Multivitamin) 1 EACH TABLET 1 Tablet ORAL DAILY Qty = 30 No Refills Pantoprazole Sodium (Protonix) 40 MG TABLET.DR 40 Milligram INTRAVEN DAILY Qty = 7 No Refills Heparin Sodium,Porcine/D5w (Heparin-D5w 25,000 Unit/500 Ml) 25,000 UNIT/500 ML ( 50 UNIT/ML) IV.SOLN 25,000 Units INTRAVEN EVERY 24 HOURS Qty = 7 No Refills Copies To: ROLAN DAVEY,LIA DIAZ MD,IRENE Mederos; NAEEM DAVEY,NELSON Attending MD Review Statement Documenting Attending: ALLY DAVEY,JAMES Ramirez
[2017-06-21 21:50] LABS: HEMATOCRIT 31.4 % (42-52); MEAN CORPUSCULAR HGB 33.3 PG (27.0-31.0); MEAN CORPUSCULAR HGB CONC 34.7 G/DL (33.0-37.0); MEAN CORPUSCULAR VOLUME 96.2 FL (80.0-94.0); MEAN PLATELET VOLUME 8.1 FL (7.4-10.4); RED BLOOD CELL CT 3.26 /CUMM (4.70-6.10); WHITE BLOOD CELL COUNT 15.4 /CUMM (4.8-10.8)
[2017-06-21 21:53] LABS: PLATELET COUNT 1021 /CUMM (130-400)
[2017-06-21 22:24] LABS: PTT 39 SEC (25-37)
[2017-06-22] VITALS (16 sets, daily range): BP systolic 118–128; BP diastolic 52–66
[2017-06-22 05:27] LABS: MEAN CORPUSCULAR HGB CONC 34.4 G/DL (33.0-37.0)
[2017-06-22 05:31] LABS: HEMATOCRIT 29.9 % (42-52); MEAN PLATELET VOLUME 7.2 FL (7.4-10.4); PLATELET COUNT 848 /CUMM (130-400); RBC DISTRIBUTION WIDTH 16.1 % (11.5-14.5); RED BLOOD CELL CT 3.11 /CUMM (4.70-6.10); WHITE BLOOD CELL COUNT 15.9 /CUMM (4.8-10.8)
[2017-06-22 05:49] LABS: PTT > 120 SEC (25-37)
--- NOTE | 2017-06-22 06:44 | PN- Gastroenterology ---
See Addendum Assessment/Plan Assessment/Recommendations: 76 y/o male, DNR/DNI, SENECA, poor historian, ASHD, CABG x 3 1991 (denies [place], does not see cardiology or renal), HTN, HLD, TIA (right handed), low Vit D, ? if COPD , CRF, sent to [facility] ER by PMD, Dr. Solano 06/18/2017, as he was found to be yellow at office visit. The patient had elevated LFTs and acute on chronic renal insufficiency on 06/18/2017 in the ER, however he left AGAINST MEDICAL ADVICE and refused imaging studies. He had been drinking alcohol up until 2 weeks prior. He was sent back to the ER by his PMD 06/21/2017, prompting the GI consult. Imaging studies were limited, due to his low GFR. 40- pack-year cigarette smoker, stopping in 1991 at the time of his CABG, but resumed cigarettes 09/2016, when his second . He is currently smoking 1/2 pack a day. He admitted to at least 5 scotches daily x years. He denied any history of viral hepatitis, IVDA, previous transfusions, body piercings, or tattoos. He denied any history of increased abdominal girth or peripheral edema. He was confused yesterday, 06/20/17, driving to [place] , when trying to visit his daughter in [place]. He denied any history of DTs, seizure , or alcohol withdrawal. His PMD stopped his ASA 81 mg daily, Provastatin & Procardia on 06/18/17, when his abnormal labs were noted. He had never had an EGD or colonoscopy. He denied any known family history of GI malignancy, GI disease, or inherited liver disease, although his mother at 60 from some type of malignancy, primary site unknown. He was unaware of being yellow, but did note pruritus & dark urine for the past week. He denied any light stool, and stated he had dark stools 1 week prior (light brown, OB+ stool on my digital exam 06/21/17). He denied any NSAID use. He denied any chest pain, shortness of breath, fevers, chills, night sweats, symptoms of UTI (aside from frequency, without dysuria), or URI. He denied any nausea, vomiting, reflux, odynophagia, dysphagia, early satiety, abdominal pain, hematemesis, hemoptysis, diarrhea, constipation, obstipation, tenesmus, or rectal bleeding. He has solid bowel movements TID, without change. He claimed he lost 40 pounds since his 09/2016, with decreased appetite. He admitted to depression, without SI or HI. There were some questionable vague myalgias and arthralgias, which the patient cannot fully define. 08/17/14: SPEP/IPEP- *possible IgG lambda monoclonal protein. 08/20/14: UPEP- *no monoclonal Ig detected. 06/18/17: WBC 15.6 (89S/1B/3L/5M/1E/1 Baso), H/H 11.6/33.1, MCV 94.7, RDW 16.4, *PLT 1249, glucose 96, BUN/Cr 59/2.7, GFR 23, Na 132, K 5.2, HCO3 12, AG 18, Ca2 + 10.6, albumin 3.8, globulin 3.8, TBil 14 (DBil 12.6), alk phos 654, AST 293, ALT 193; Hep A Ab, Hep Bs Ag, Hep B core Ab, Hep C Ab- all negative (*no PT/PTT were sent then). *Patient left ER AMA then. 06/21/17: WBC 15.9 (86S/1B/6L/4M/2E/1 Baso), H/H 12.1/35.1, MCV 96, *PLT 1171, PT 15.0, INR 1.43, glucose 96, BUN/Cr 72/3.2, GFR 19, Na 131, K 4.8, HCO3 13, AG 18, Ca2+ 10, albumin 3.5, globulin 3.9, TBil 14.5 (*fracs pending), alk phos 692 , AST 451, ALT 240, lactate 1.9 06/21/17: U/A- hazy, judith, 1.020, 6.0, 3-5 WBC, few granular casts, few bact, mod amorph, large Hgb, + icto, 30+ protein, 4.0 urobil, neg nitrite, trace esterase. 06/21/17: *MELD- [place] 31, UNOS 31. 06/21/17: *[facility] discriminant function 28.3. 06/21/17: EKG- NSR @ 69, normal axis, LAD, low voltage limb leads, PRWP. 06/21/17: CHEST XRAY, PA AND LATERAL- No evidence for acute disease. Lung hyperinflation.No cardiomegaly. No infiltrate or effusion. Post CABG. Healing posterior right 8th rib fracture. No acute rib fractures. 06/21/17: CT ABDOMEN AND PELVIS WITHOUT CONTRAST- Significantly limited examination due to the lack of IV contrast (*low GFR). * However, there is suggestion of a 5 cm mass lesion within the lateral aspect of the right lobe of the liver. The liver has extensive subcapsular nodularity and decreased size which is nonspecific, but could be indicative of chronic hepatocellular disease, such as cirrhosis. Recommendation is for correlation with abdominal MRI with contrast for further characterization of the suspected hepatic mass lesion. Gallbladder wall thickening with pericholecystic fluid. There is a solitary calculus. Cholecystitis cannot be excluded. Consider correlation with ultrasound. Atrophic right kidney & normal sized left kidney, without hydronephrosis or nephrolithiasis. [id number] amount of free fluid within the abdomen and pelvis (LUQ) of uncertain etiology. 06/21/17: US ABDOMEN LIMITED- 1. Above findings are consistent with liver cirrhosis with *suspicion of partial thrombus in the central portal vein and probably complete thrombosis in the right and left portal veins, which are not seen with color Doppler imaging. 2. *No discrete liver mass appreciated, including in the right lobe of the liver, where on CT scan in a 5 cm mass lesion was suspected. 3. Diffuse gallbladder wall thickening, edema, pericholecystic fluid, and small gallstone are noted. Findings are nonspecific in the setting of hepatic dysfunction and ascites. Negative ultrasonic Burnett sign. Close clinical correlation is requested. No dilated ducts seen. CBD 3 mm. * 4. Atrophic right kidney. *Given the above findings of suspected portal venous thrombosis and potentially discrepant findings between the CT scan and this ultrasound in regards to hepatic mass lesion, further more sensitive assessment with a dynamic MRI scan with contrast is recommended. *I discussed this with Dr. Goodman, of [facility], on 06/21/17. *The patient's low GFR prohibits MRI with gadolinium, so she advised MRI without gadolinium to r/o portal vein thrombus. *The patient probably has alcoholic hepatitis, rule out cirrhosis. His MELD score was markedly elevated on admission. His weight loss was noted. Additionally, it is difficult to interpret his imaging studies, because of the lack of IV contrast, due to his CKD. His renal insufficiency is probably acute on chronic in nature, with a component of dehydration, with a less likely component of HRS. There is no hydronephrosis. Noncontrast CT on admission was suggestive of a 5 cm right hepatic mass, however none was seen on sono. However, there was a question of a portal vein thrombosis on sono, which I reviewed with Dr. Goodman, of [facility], who advised an MRI (albeit without IV contrast), to reassess the portal veins. The thrombocytosis is noted- rule out iron deficiency, rule out MDS, rule out underlying neoplasm/hepatoma. Although the patient has no asterixis, apparently he was confused 1 day [employer], rule out PSE. The mild leukocytosis is noted, but the patient does not appear septic. He does have cholelithiasis, but most likely, this is incidental in nature. Doubt cholecystitis. He has no dilated ducts. 06/21/17: *MR ABDOMEN WITHOUT CONTRAST (*low GFR)- 1. Nodular cirrhotic liver with innumerable hepatic masses and small volume ascites seen. While not definitive by imaging given the lack of intravenous contrast, findings are highly suspicious for multifocal hepatocellular carcinoma. 2. Enlarged main, right and left portal veins with no vascular flow demonstrated. 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 3. Atrophic right kidney. 4. Bilateral small subcentimeter sized renal masses, most likely cysts. 5. Multilevel moderate degenerative changes in the thoracolumbar spine with posterior disc osteophyte complexes seen at multiple levels. Associated spinal stenosis at the L3-L4 level is suspected. Findings discussed with Dr. Kristina Marte 06/21/2017, 5:45 PM., per Dr. Goodman. I was notified of the abnormal MRI abdomen without contrast (read by Dr. Goodman), by Dr. Marte, yesterday 06/21/17 p.m. & I advised vascular surgery input, IV heparin & [facility] transfer (Dr. Head- hepatology). The patient was accepted to [facility], but currently no beds are available. He should be transferred later today. The patient and his daughter, Cindy Martins, were made aware of the probable (mulitfocal) hepatoma and portal vein thrombosis, & I personally discussed this with them, as well. Vascular surgery (Dr. Cárdenas) felt that while A/C therapy was indicated, it would probably have limited benefit, as the portal vein seemed to be encased in tumor. *In vew of the above MRI findings, the patient's bowel prep for colonoscopy was canceled midway. He remains NPO for possible EGD later today ( if he remains as an inpatient), to rule out varices. *As of 06/22/17, the patient remained hemodynamically stable and afebrile, with O2 sat RA 96%. IV Protonix 40 mg daily, thiamine, folate & MVI were added. His baby aspirin was resumed, along with starting IV heparin, as above. He denied any confusion, abdominal pain, overt GI bleeding, hematemesis, rectal bleeding, chest pain, shortness of breath, fevers, or chills. He remained jaundiced. His pruritus was stable. 06/21/17: *NH3 < 9, Fe 61, TIBC 267, Fe sat 22.8%, *ferritin 3050 (? acute phase rx vs. HHC), B12 > 1000 06/21/17: *Claudia 9, *FENa 0.2 (*pre-renal vs. HRS) 06/21/17: *EPI, AMA, CEA, AFP, MMA, RBC folate- pending. *SUGGEST: *Await [facility] transfer for further workup & treatment of portal vein thrombosis ( PV encased by tumor), & presumed multifocal hepatoma. Colonoscopy canceled, in view of above. The patient will remain NPO for possible EGD later today, if he remains at [facility], to rule out varices. Gentle IV fluids. Carefully continue IV heparin, with close follow-up of coags & CBC. *Continue ASA 81 mg daily for now, with history of ASHD/CABG x 3 1992/TIA & thrombocytosis. * Continue Protonix 40 mg IV daily. Continue to hold Provastatin with elevated LFTs. *Await 06/21/17: AFP, CEA, RBC folate, MMA, EPI, AMA. Check Hep Bs Ab. * See if there is tappable ascites per IR- if so, needs abdominal tap & send ascitic fluid for gram stain, C&S (in BC bottles to increase yield), cell count, cytology, BF protein & BF albumin (& simultaneous serum albumin to check SAAG). *Check urine C&S. *Advise renal consult (low GFR; acute on chronic renal failure - ? pre-renal > HRS superimposed component) & hematology consult (thrombocytosis probably due to hepatoma), if patient remains at [facility] as inpatient. *Elevated ferritin is noted (acute phase rx vs. HHC- ? moot point; consideration for checking mutations for HHC). Workup of microscopic hematuria & abnormal urinary sediment per medical team. DVT prophylaxis with mechanical ALPS (*already on IV heparin for PV thnrombosis). *Check TFTs with TSH. *Thiamine, folate, MVI. CIWA protocol, but apparently last drank 2 weeks [employer]. Ativan as needed. Avoid hepatotoxins, NSAIDS & keep Tylenol use to < 2g daily. *Further workup of presumed multifocal hepatoma, as per [facility]. Advise annual flu shot, Pneumovax if applicable, & semi-elective Hep A & B vaccination, if not immune. *May add Questran 4g po TID 1/2 hour before meals, regarding pruritus. Consider SW & psychiatric input. *The above findings and recommendations were discussed with the patient, the patient's daughter, Cindy Martins, & the medical housestaff. *The patient & his daughter, Cindy, are aware of the numerous issues & significant underlying disease, with poor prognosis. Further GI recommendations to follow, depending on clinical course. Problem List: 1. Abnormal LFTs 2. Alcoholic hepatitis 3. Weight loss 4. Cirrhosis 5. Hepatoma 6. 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 Cholelithiasis 8. Guaiac positive stools 9. Renal insufficiency Subjective Subjective: 06/21/17: *MR ABDOMEN WITHOUT CONTRAST (*low GFR)- 1. *Nodular cirrhotic liver with innumerable hepatic masses and small volume ascites seen. While not definitive by imaging given the lack of intravenous contrast, findings are highly suspicious for multifocal hepatocellular carcinoma. 2. *Enlarged main, right and left portal veins with no vascular flow demonstrated. 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 3. Atrophic right kidney. 4. Bilateral small subcentimeter sized renal masses, most likely cysts. 5. Multilevel moderate degenerative changes in the thoracolumbar spine with posterior disc osteophyte complexes seen at multiple levels. Associated spinal stenosis at the L3-L4 level is suspected. Findings discussed with Dr. Kristina Marte 06/21/2017, 5:45 PM., per Dr. Goodman. I was notified of the abnormal MRI abdomen without contrast (read by Dr. Goodman), by Dr. Marte, yesterday 06/21/17 p.m. & I advised vascular surgery input, IV heparin & [facility] transfer (Dr. Head- hepatology). The patient was accepted to [facility], but currently no beds are available. He should be transferred later today. The patient and his daughter, Cindy Martins, were made aware of the probable (mulitfocal) hepatoma and portal vein thrombosis, & I personally discussed this with them, as well. Vascular surgery (Dr. Cárdenas) felt that while A/C therapy was indicated, it would probably have limited benefit, as the portal vein seemed to be encased in tumor. *In vew of the above MRI findings, the patient's bowel prep for colonoscopy was canceled midway. He remains NPO for possible EGD later today ( if he remains as an inpatient), to rule out varices. *As of 06/22/17, the patient remained hemodynamically stable and afebrile, with O2 sat RA 96%. IV Protonix 40 mg daily, thiamine, folate & MVI were added. His baby aspirin was resumed, along with starting IV heparin, as above. He denied any confusion, abdominal pain, overt GI bleeding, hematemesis, rectal bleeding, chest pain, shortness of breath, fevers, or chills. He remained jaundiced. His pruritus was stable. 06/21/17: *NH3 < 9, Fe 61, TIBC 267, Fe sat 22.8%, *ferritin 3050 (? acute phase rx vs. HHC), B12 > 1000 06/21/17: *Claudia 9, *FENa 0.2 (*pre-renal vs. HRS) 06/21/17: *EPI, AMA, CEA, AFP, MMA, RBC folate- pending. Review of Systems: Full 14 point ROS otherwise noncontributory, and as above. Review of Systems Constitutional: Reports: weakness, unexplained weight loss. Denies: chills, diaphoresis, fever, malaise. EENTM: Reports: icterus. Denies: blurred vision, double vision, visual changes, eye pain, eye drainage, eye tearing, ear discharge, ear pain, ear redness, hearing changes, nasal congestion, epistaxis, nasal pain, throat pain, throat swelling, mouth pain, tooth pain. Cardiovascular: Denies: chest pain, edema, orthopena, palpitations, peripheral edema, syncope. Respiratory: Denies: cough, hemoptysis, orthopnea, short of breath, sputum production, stridor, wheezing. GI: Denies: abdominal pain, bloating, constipation, diarrhea, distention, bowel incontinence, melena, nausea, bloody stool, changes in stool, vomiting, steatorrhea. Genitourinary: Reports: frequency. Denies: discharge, dysuria, hematuria, hesitation, nocturia, pain, urgency. Musculoskeletal: Reports: joint swelling, muscle stiffness. Denies: back pain, gout, joint pain, muscle pain, neck pain. Skin: Reports: jaundice (& pruritis). Denies: cysts, change in skin color, change in hair/nails, dryness, erythema, lesions, lymphangitis, lumps, moles, rash. Neurological/Psychological: Reports: depressed (since 09/2016). Denies: anxiety, ataxia, cognitive dysfunction, confusion, dementia, emotional problems, headache, numbness, paresthesia, pre-existing deficit, petit mal seizures, tingling, tremors, tonic-clonic seizures, unable to move lower ext, unable to move upper ext, weakness, other. Hematologic/Endocrine: Denies: bruising, bleeding, polyuria, polydipsia. Immunologic/Allergic: Denies: splenectomy, HIV/AIDS, lymphadenopathy. All Other Systems: Reviewed and Negative Objective Vital Signs and I&Os Vital Signs Date Time Temp Pulse Resp B/P B/P Pulse O2 O2 Flow FiO2 Mean Ox Delivery Rate 06/22 0529 97.9 78 20 122/60 96 Room Air 06/22 0233 97.7 69 20 124/64 97 Room Air 06/21 2250 97.5 74 20 126/60 98 Room Air 06/21 2249 97.3 73 18 124/60 06/21 2200 97.3 73 18 124/60 06/21 2000 97.3 73 18 124/60 06/21 1800 97.3 73 18 124/60 06/21 1747 97.3 73 20 124/60 97 Room Air 06/21 1425 98.7 72 18 119/64 06/21 1421 98.7 72 18 119/64 97 Room Air 06/21 1143 97.4 70 18 147/65 98 Room Air 06/21 0856 98 Room Air 06/21 0825 96.6 84 18 120/59 100 Room Air Intake & Output 06/22 1600 06/22 0400 06/21 1600 06/21 0400 06/20 1600 06/20 0400 Intake Total 1900 Output Total 60 Balance 1840 Intake, IV 300 Intake, Oral 1600 Number 3 Bowel Movements Output, Urine 60 Patient 141 lb 141 lb Weight Weight Reported by Patient Reported by Patient Measurement Method Physical Exam: Well-developed, slightly malnourished, chronically ill-appearing, yellow male, in no apparent distress. Sclera icteric. Conjunctiva pink. Oropharynx clear. No oral thrush. No aphthous ulcers. There is no adenopathy, thyromegaly, JVD, or HJR. carotids 1+ B/L without bruit. No peripheral stigmata of inflammatory bowel disease on exam. ? Faint spiders on the anterior chest wall. No gynecomastia. No CVA tenderness. Lungs: clear to A&P, with slight decreased breath sounds at the bases B/L. Slightly prolonged expiratory phase, without wheezing, rales, or rhonchi. Heart exam: regular rate rhythm, S1 and S2, without any murmur. Post CABG scar. Abdominal exam: normal bowel sounds, soft belly, nontender, without guarding or rebound. No definite mass. Liver approximately 11 cm by percussion. Borderline palpable spleen tip. Negative Burnett sign. Scant fluid shift. No pulsatile mass. No epigastric bruit. Digital rectal exam: done by myself 06/21/17: light brown stool, OB+, without mass. Smooth enlarged prostate, without nodule. No external hemorrhoids or fissure. Extremities: without C, C, or E. No palpable cords. No palmar erythema. No Dupuytren's contractures. Mild DJD. Distal pulses 1+ bilaterally. DTRs 1+ bilaterally. Right handed. CN II-XII intact. Alert and oriented x 3. Motor 5/5 B/L. A detailed exam for peripheral neyuropathy & visual field testing was deferred. No tremor. No asterixis. Current Medications: Current Medications Sig/Izzy Start time Last Medication Dose Route Stop Time Status Admin Aspirin 81 MG DAILY 06/21 1913 AC 06/21 PO 2233 Folic Acid 1 MG DAILY 06/22 1000 AC PO Heparin Sodium/ 25,000 UNIT Q24H 06/21 2030 AC 06/22 Dextrose IV 07 Dextrose/Water 500 ML Lorazepam 0 Q1P PRN 06/21 1415 AC IV Morphine Sulfate 0.5 MG Q6-PRN PRN 06/21 1545 AC IV Multivitamins 1 TAB DAILY 06/21 1938 AC 06/21 PO 223 Multivitamins 0 .STK-MED ONE 06/21 1412 DC PO Multivitamins 1 TAB DAILY 06/21 1400 DC 06/21 PO 1408 Nicotine 0 .STK-MED ONE 06/21 1412 DC TOP Nicotine 14 MG Q24 06/21 1359 AC 06/21 TOP 1408 Pantoprazole Sodium 40 MG DAILY 06/21 1916 AC 06/21 IV 2233 Polyethylene Glycol 1 GAL ONE TIME ONE 06/21 1600 DC 06/21 PO 06/21 1601 1803 Sodium Chloride 1,000 ML .Q10H 06/21 1900 AC 06/22 IV 06/22 1458 0500 Sodium Chloride 1,000 ML .Q10H 06/21 1400 DC 06/21 IV 06/21 2359 1414 Sodium Chloride 1,000 ML ONCE ONE 06/21 0830 DC 06/21 IV 06/21 1829 0851 Thiamine HCl 100 MG DAILY 06/21 1938 AC 06/21 PO 2233 Results Pertinent Lab Results: Laboratory Tests 06/22 06/22 06/21 06/21 0600 0515 2150 2100 Chemistry Sodium (137 - 145 mmol/L) 132 L Potassium (3.5 - 5.1 mmol/L) 4.2 Chloride (98 - 107 mmol/L) 103 Carbon Dioxide (22 - 30 mmol/L) 13 L Anion Gap (5 - 16) 16 BUN (9 - 20 mg/dL) 67 H Creatinine (0.7 - 1.2 mg/dL) 2.9 H Estimated GFR (>60 ml/min) 21 L BUN/Creatinine Ratio (7 - 25 %) 23.1 Total Bilirubin (0.2 - 1.3 mg/dL) 13.1 H Direct Bilirubin (< 0.4 mg/dL) 11.8 H AST (17 - 59 U/L) 352 H ALT (21 - 72 U/L) 211 H Alkaline Phosphatase (< 127 U/L) 578 H Total Protein (6.3 - 8.2 g/dL) 6.2 L Albumin (3.5 - 5.0 g/dL) 3.0 L Alpha Fetoprotein Pending Carcinoembryonic Ag Pending Methylmalonic Acid Pending RBC Folate Pending Coagulation APTT (25 - 37 SEC) > 120 *H 39 H Hematology CBC w Diff MAN DIFF ORDERED WBC (4.8 - 10.8 /CUMM) 15.9 H RBC (4.70 - 6.10 /CUMM) 3.11 L Hgb (14.0 - 18.0 G/DL) 10.3 L Hct (42 - 52 %) 29.9 L MCV (80.0 - 94.0 FL) 96.0 H MCH (27.0 - 31.0 PG) 33.0 H RDW (11.5 - 14.5 %) 16.1 H Plt Count (130 - 400 /CUMM) 848 H MPV (7.4 - 10.4 FL) 7.2 L Segmented Neutrophils (42.2 - 75.2 %) 89 H Lymphocytes (20.5 - 51.1 %) 5 L Monocytes (1.7 - 9.3 %) 5 Eosinophils (0 - 5.0 %) 1 Platelet Estimate (ADEQUATE) INCREASED Hypochromic-Microcytic 1+ PUBS MCHC (33.0 - 37.0 G/DL) 34.4 Immunology Anti-Mitochondrial Ab Pending 06/21 Chemistry Sodium (137 - 145 mmol/L) 129 L Potassium (3.5 - 5.1 mmol/L) 4.8 Chloride (98 - 107 mmol/L) 99 Carbon Dioxide (22 - 30 mmol/L) 16 L Anion Gap (5 - 16) 13 BUN (9 - 20 mg/dL) 69 H Creatinine (0.7 - 1.2 mg/dL) 3.0 H Estimated GFR (>60 ml/min) 20 L BUN/Creatinine Ratio (7 - 25 %) 23.0 Iron (49 - 181 ug/dL) 61 TIBC (261 - 462 ug/dL) 267 Ferritin (17.9 - 464 ng/mL) 3050.0 H Ammonia (9 - 30 umol/L) < 9 L Vitamin B12 (239 - 931 pg/mL) > 1000 H TSH (0.270 - 4.200 uIU/mL) 1.850 Free T4 (0.78 - 2.44 ng/dL) 1.88 Hematology CBC w Diff MAN DIFF ORDERED WBC (4.8 - 10.8 /CUMM) 15.4 H RBC (4.70 - 6.10 /CUMM) 3.26 L Hgb (14.0 - 18.0 G/DL) 10.9 L Hct (42 - 52 %) 31.4 L MCV (80.0 - 94.0 FL) 96.2 H MCH (27.0 - 31.0 PG) 33.3 H RDW (11.5 - 14.5 %) 16.0 H Plt Count (130 - 400 /CUMM) 1021 *H MPV (7.4 - 10.4 FL) 8.1 Segmented Neutrophils (42.2 - 75.2 %) 87 H Lymphocytes (20.5 - 51.1 %) 7 L Monocytes (1.7 - 9.3 %) 4 Eosinophils (0 - 5.0 %) 2 Platelet Estimate (ADEQUATE) VERIFIED BY SMEAR Normochromic RBCs VERIFIED Target Cells FEW PUBS MCHC (33.0 - 37.0 G/DL) 34.7 Other Body Source Fld Total RBCs Counted (%) 100 Serology Hep Bs Antibody (NONREACTIVE) NONREACTIVE Urines Ur Random Creatinine (mg/dL) 123.2 Ur Random Sodium (30 - 90 mmol/L) 9 L Ur Random Potassium (mmol/L) 47.0 Fraction Sodium Excret (<1% %) 0.2 06/21 06/21 1937 1800 Chemistry Sodium Cancelled Potassium Cancelled Chloride Cancelled Carbon Dioxide Cancelled Anion Gap Cancelled BUN Cancelled Creatinine Cancelled BUN/Creatinine Ratio Cancelled TSH Cancelled Free T4 Cancelled 06/21 06/21 1540 1540 Chemistry Lactic Acid (0.7 - 2.1 mmol/L) 1.9 Urines Urinalysis MOD H Urine Color (YEL,AMB,STR) JUDITH Urine Clarity (CLEAR) HAZY H Urine pH (5.0 - 8.0) 6.0 Ur Specific Jerome (1.001 - 1.035) 1.020 Urine Protein (NEG,<30 MG/DL) 30 H Urine Ketones (NEG) NEG Urine Nitrite (NEG) NEG Urine Bilirubin (NEG) POS@ICTO H Urine Urobilinogen (0.1 - 1.0 EU/dl) 4.0 H Ur Leukocyte Esterase (NEG) TRACE H Ur Microscopic SEDIMENT EXAMINED Urine WBC (0 - 2 /HPF) 3-5 H Ur Epithelial Cells (NONE,FEW) MOD H Urine Bacteria (NEG/NONE) FEW H Granular Casts (NONE /LPF) FEW H Urine Hemoglobin (NEG) LARGE H Ur Random Creatinine (mg/dL) 122.8 Ur Random Sodium (30 - 90 mmol/L) 8 L Ur Random Potassium (mmol/L) 49.2 Fraction Sodium Excret (<1% %) 0.2 Urine Glucose (N MG/DL) NEG 06/21 06/21 0848 0829 Chemistry Sodium (137 - 145 mmol/L) 131 L Potassium (3.5 - 5.1 mmol/L) 4.8 Chloride (98 - 107 mmol/L) 100 Carbon Dioxide (22 - 30 mmol/L) 13 L Anion Gap (5 - 16) 18 H BUN (9 - 20 mg/dL) 72 H Creatinine (0.7 - 1.2 mg/dL) 3.2 H Estimated GFR (>60 ml/min) 19 L BUN/Creatinine Ratio (7 - 25 %) 22.5 Glucose (65 - 99 mg/dL) 96 Calcium (8.4 - 10.2 mg/dL) 10.0 Total Bilirubin (0.2 - 1.3 mg/dL) 14.5 H Direct Bilirubin (< 0.4 mg/dL) 12.6 H AST (17 - 59 U/L) 451 H ALT (21 - 72 U/L) 240 H Alkaline Phosphatase (< 127 U/L) 692 H Total Protein (6.3 - 8.2 g/dL) 7.4 Albumin (3.5 - 5.0 g/dL) 3.5 Globulin (1.9 - 4.2 gm/dL) 3.9 Albumin/Globulin Ratio (1.1 - 2.2 %) 0.9 L Coagulation PT (9.4 - 12.5 SEC) 15.0 H INR (0.90 - 1.17) 1.43 H Hematology CBC w Diff MAN DIFF ORDERED WBC (4.8 - 10.8 /CUMM) 15.9 H RBC (4.70 - 6.10 /CUMM) 3.66 L Hgb (14.0 - 18.0 G/DL) 12.1 L Hct (42 - 52 %) 35.1 L MCV (80.0 - 94.0 FL) 96.0 H MCH (27.0 - 31.0 PG) 33.2 H RDW (11.5 - 14.5 %) 15.9 H Plt Count (130 - 400 /CUMM) 1171 *H MPV (7.4 - 10.4 FL) 7.6 Segmented Neutrophils (42.2 - 75.2 %) 86 H Band Neutrophils (0.0 - 5.0 %) 1 Lymphocytes (20.5 - 51.1 %) 6 L Monocytes (1.7 - 9.3 %) 4 Eosinophils (0 - 5.0 %) 2 Basophils (0.0 - 2.0 %) 1 Platelet Estimate (ADEQUATE) INCREASED Anisocytosis 1+ Target Cells PUBS MCHC (33.0 - 37.0 G/DL) 34.5 Retic Count (0.5 - 2.0 %) 3.37 H Immunology EPI Titer Pending Anti-Nuclear Antibody Pending Imaging/Other Studies: 06/21/17: EKG- NSR @ 69, normal axis, LAD, low voltage limb leads, PRWP. 06/21/17: CHEST XRAY, PA AND LATERAL- No evidence for acute disease. Lung hyperinflation.No cardiomegaly. No infiltrate or effusion. Post CABG. Healing posterior right 8th rib fracture. No acute rib fractures. 06/21/17: CT ABDOMEN AND PELVIS WITHOUT CONTRAST- Significantly limited examination due to the lack of IV contrast (*low GFR). * However, there is suggestion of a 5 cm mass lesion within the lateral aspect of the right lobe of the liver. The liver has extensive subcapsular nodularity and decreased size which is nonspecific, but could be indicative of chronic hepatocellular disease, such as cirrhosis. Recommendation is for correlation with abdominal MRI with contrast for further characterization of the suspected hepatic mass lesion. Gallbladder wall thickening with pericholecystic fluid. There is a solitary calculus. Cholecystitis cannot be excluded. Consider correlation with ultrasound. Atrophic right kidney & normal sized left kidney, without hydronephrosis or nephrolithiasis. [id number] amount of free fluid within the abdomen and pelvis (LUQ) of uncertain etiology. 06/21/17: US ABDOMEN LIMITED- 1. Above findings are consistent with liver cirrhosis with *suspicion of partial thrombus in the central portal vein and probably complete thrombosis in the right and left portal veins, which are not seen with color Doppler imaging. 2. *No discrete liver mass appreciated, including in the right lobe of the liver, where on CT scan in a 5 cm mass lesion was suspected. 3. Diffuse gallbladder wall thickening, edema, pericholecystic fluid, and small gallstone are noted. Findings are nonspecific in the setting of hepatic dysfunction and ascites. Negative ultrasonic Burnett sign. Close clinical correlation is requested. No dilated ducts seen. CBD 3 mm. * 4. Atrophic right kidney. *Given the above findings of suspected portal venous thrombosis and potentially discrepant findings between the CT scan and this ultrasound in regards to hepatic mass lesion, further more sensitive assessment with a dynamic MRI scan with contrast is recommended. *I discussed this with Dr. Goodman, of [facility], on 06/21/17. *The patient's low GFR prohibits MRI with gadolinium, so she advised MRI without gadolinium to r/o portal vein thrombus. 06/21/17: *MR ABDOMEN WITHOUT CONTRAST (*low GFR)- 1. *Nodular cirrhotic liver with innumerable hepatic masses and small volume ascites seen. While not definitive by imaging given the lack of intravenous contrast, findings are highly suspicious for multifocal hepatocellular carcinoma. 2. *Enlarged main, right and left portal veins with no vascular flow demonstrated. 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 3. Atrophic right kidney. 4. Bilateral small subcentimeter sized renal masses, most likely cysts. 5. Multilevel moderate degenerative changes in the thoracolumbar spine with posterior disc osteophyte complexes seen at multiple levels. Associated spinal stenosis at the L3-L4 level is suspected. Findings discussed with Dr. Kristina Marte 06/21/2017, 5:45 PM., per Dr. Goodman.
--- NOTE | 2017-06-22 07:15 | PN- Housestaff ---
STERLING MONTALVO 06/22/17 0715: Subjective Follow-up For: elevated transaminitis possible hepatocellular carcinoma NGOZI portal vein thrombosis thrombocytosis Complaints: no complaints Subjective: Seen and examined patient. endorses easy bruisability. Denies fevers, chills, chest pain, shortness of breath, abdominal distension/pain. Review of Systems Constitutional: Denies: chills, diaphoresis, fever, malaise, weakness, unexplained weight loss. Cardiovascular: Denies: chest pain, edema, orthopena, palpitations, peripheral edema, syncope. Respiratory: Denies: cough, hemoptysis, orthopnea, short of breath, sputum production, stridor, wheezing. Objective Last 24 Hrs of Vital Signs/I&O Vital Signs Date Time Temp Pulse Resp B/P B/P Pulse O2 O2 Flow FiO2 Mean Ox Delivery Rate 06/22 0529 97.9 78 20 122/60 96 Room Air 06/22 0233 97.7 69 20 124/64 97 Room Air 06/21 2250 97.5 74 20 126/60 98 Room Air 06/21 2249 97.3 73 18 124/60 06/21 2200 97.3 73 18 124/60 06/21 2000 97.3 73 18 124/60 06/21 1800 97.3 73 18 124/60 06/21 1747 97.3 73 20 124/60 97 Room Air 06/21 1425 98.7 72 18 119/64 06/21 1421 98.7 72 18 119/64 97 Room Air 06/21 1143 97.4 70 18 147/65 98 Room Air Intake & Output 06/22 1600 06/22 0800 06/22 0000 Intake Total 1900 Output Total 60 Balance 1840 Intake, IV 300 Intake, Oral 1600 Number 3 Bowel Movements Output, Urine 60 Patient 141 lb Weight Weight Reported by Patient Measurement Method Physical Exam General Appearance: Alert, Oriented X3, Cooperative, No Acute Distress Cardiovascular: Regular Rate, Normal S1, Normal S2 Lungs: Clear to Auscultation, Normal Air Movement Abdomen: Normal Bowel Sounds, Soft, No Tenderness, No Hepatospenomegaly, No Masses Neurological: Normal Speech, Cranial Nerves 3-12 NL Extremities: No Edema Current Medications: Current Medications Sig/Izzy Start time Last Medication Dose Route Stop Time Status Admin Aspirin 81 MG DAILY 06/21 1913 AC 06/21 PO 2233 Folic Acid 1 MG DAILY 06/22 1000 AC PO Heparin Sodium/ 25,000 UNIT Q24H 06/21 2030 AC 06/22 Dextrose IV 0700 Dextrose/Water 500 ML Lorazepam 0 Q1P PRN 06/21 1415 AC IV Morphine Sulfate 0.5 MG Q6-PRN PRN 06/21 1545 AC IV Multivitamins 1 TAB DAILY 06/21 1938 AC 06/21 PO 2232 Multivitamins 0 .STK-MED ONE 06/21 1412 DC PO Multivitamins 1 TAB DAILY 06/21 1400 DC 06/21 PO 1408 Nicotine 0 .STK-MED ONE 06/21 1412 DC TOP Nicotine 14 MG Q24 06/21 1359 AC 06/21 TOP 1408 Pantoprazole Sodium 40 MG DAILY 06/21 1916 AC 06/21 IV 2233 Polyethylene Glycol 1 GAL ONE TIME ONE 06/21 1600 DC 06/21 PO 06/21 1601 1803 Sodium Chloride 1,000 ML .Q10H 06/21 1900 AC 06/22 IV 06/22 1458 0500 Sodium Chloride 1,000 ML .Q10H 06/21 1400 DC 06/21 IV 06/21 2359 1414 Sodium Chloride 1,000 ML ONCE ONE 06/21 0830 DC 06/21 IV 06/21 1829 0851 Thiamine HCl 100 MG DAILY 06/21 193 AC 06/21 PO 223 Last 24 Hrs of Lab/Vijay Results Last 24 Hrs of Labs/Mics: Laboratory Tests 06/22/17 0600: Alpha Fetoprotein Pending, Carcinoembryonic Ag Pending, Methylmalonic Acid Pending, Anti-Mitochondrial Ab Pending 06/22/17 0515: Anion Gap 16, Estimated GFR 21 L, BUN/Creatinine Ratio 23.1, Total Bilirubin 13.1 H, Direct Bilirubin 11.8 H, AST 352 H, ALT 211 H, Alkaline Phosphatase 578 H, Total Protein 6.2 L, Albumin 3.0 L, APTT > 120 *H, CBC w Diff MAN DIFF ORDERED, RBC 3.11 L, MCV 96.0 H, MCH 33.0 H, RDW 16.1 H, MPV 7.2 L, Segmented Neutrophils 89 H, Lymphocytes 5 L, Monocytes 5, Eosinophils 1, Platelet Estimate INCREASED, Hypochromic-Microcytic 1+, PUBS MCHC 34.4 06/21/17 2150: APTT 39 H 06/21/17 2100: RBC Folate Pending 06/21/17 2100: Anion Gap 13, Estimated GFR 20 L, BUN/Creatinine Ratio 23.0, Iron 61, TIBC 267, Ferritin 3050.0 H, Vitamin B12 > 1000 H, TSH 1.850, Free T4 1.88 06/21/17 2100: Ammonia < 9 L, CBC w Diff MAN DIFF ORDERED, RBC 3.26 L, MCV 96.2 H, MCH 33.3 H, RDW 16.0 H, MPV 8.1, Segmented Neutrophils 87 H, Lymphocytes 7 L, Monocytes 4, Eosinophils 2, Platelet Estimate VERIFIED BY SMEAR, Normochromic RBCs VERIFIED, Target Cells FEW, PUBS MCHC 34.7, Fld Total RBCs Counted 100, Hep Bs Antibody NONREACTIVE 06/21/172036: Ur Random Creatinine 123.2, Ur Random Sodium 9 L, Ur Random Potassium 47.0, Fraction Sodium Excret 0.2 06/21/171936: TSH Cancelled, Free T4 Cancelled 06/21/17 1800: Sodium Cancelled, Potassium Cancelled, Chloride Cancelled, Carbon Dioxide Cancelled, Anion Gap Cancelled, BUN Cancelled, Creatinine Cancelled, BUN/ Creatinine Ratio Cancelled 06/21/17 1540: Urinalysis MOD H, Urine Color JUDITH, Urine Clarity HAZY H, Urine pH 6.0, Ur Specific [place] 1.020, Urine Protein 30 H, Urine Ketones NEG, Urine Nitrite NEG, Urine Bilirubin POS@ICTO H, Urine Urobilinogen 4.0 H, Ur Leukocyte Esterase TRACE H, Ur Microscopic SEDIMENT EXAMINED, Urine WBC 3-5 H, Ur Epithelial Cells MOD H, Urine Bacteria FEW H, Granular Casts FEW H, Urine Hemoglobin LARGE H, Urine Glucose NEG 06/21/17 1540: Lactic Acid 1.9, Ur Random Creatinine 122.8, Ur Random Sodium 8 L, Ur Random Potassium 49.2, Fraction Sodium Excret 0.2 Microbiology 06/21 2035 URINE ROUT: Urine Culture - RECD Assessment/Plan Assessment: 76-year-old gentleman from home current smoker with past medical history significant for coronary artery disease S/P CABG (1995), HTN, Hyperlipidemia, chronic alcohol dependency (no history of seizures or DT) here for evaluation of yellowish discoloration of eyes and skin, weight loss and dark colored stools. Labs on admission significant for : WBC 15.9 (86S/1B/6L/4M/2E/1 Baso), H/H 12.1/ 35.1, MCV 96, *PLT 1171, PT 15.0, INR 1.43, glucose 96, BUN/Cr 72/3.2, GFR 19, Na 131, K 4.8, HCO3 13, AG 18, Ca2+ 10, albumin 3.5, globulin 3.9, TBil 14.5 (* fracs pending), alk phos 692, AST 451, ALT 240, lactate 1.9 U/A- hazy, judith, 1.020, 6.0, 3-5 WBC, few granular casts, few bact, mod amorph, large Hgb, + icto , 30+ protein, 4.0 urobil, neg nitrite, trace esterase. He continues to be jaundiced and pain free this morning with no change in his mental status. Problem List: 1. Decompensation of cirrhosis of liver Assessment/Plan mostly likely secondary to chronic alcohol use, there is also questionable lesion on right lobe of liver on CT abd/pelvis. MELD- score calculated to 31, Maddrey discriminant function 28.3. Abdominal MRI showing complete occlusion of both the right and left portal veins and nodularity of the liver suspicous for hepatocellular carcinoma. The portal veins are also enlarged and suspicious for tumor thrombus. Awaiting bed availability for [facility] for transfer for treatment of the hepatocellular carcinoma with possible liver biopsy, and chemoembolization if appropriate. Started on low dose ASA and IV heparin per vascular consult. Transaminitis trending down and ammonia level is <9. TFT, iron panel and vit B12 within normal limits. Alpha fetoprotein, CEA and MMA pending. 2. Total bilirubin, elevated Assessment/Plan leucocytosis with no right upper quadrant tenderness and no fever will monitor closely for cholangitis will folow up lactic acid 3. Geefn-vc-hahctpi kidney injury Assessment/Plan d/d include dehydration vs hepatorenal syndrome will hydrate with IVF Will obtain UA and urine lytes 4. Thrombocytosis Assessment/Plan d/d include reactive thrombocytosis vs iron deficiency anemia vs malignancy will continue to trend hematology- oncology consult. 5. Alcohol dependence Assessment/Plan iv ativan per CIWA 6. DVT prophylaxis Assessment/Plan ALPS 7. DNR (do not resuscitate) 8. DNI (do not intubate) Problem List: 1. 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 Rbnmi-jz-hxeacab kidney injury 3. Alcohol dependence 4. Hypertension 5. Thrombocytosis Pain Ratin Pain Location: na Pain Goal: Pain 4 or less Pain Plan: current regimen Tomorrow's Labs & Rationales: none required JAMES CANALES MD 06/22/17 0902: Attending MD Review Statement Attending Statement Attending MD Statement: examined this patient, discuss w/resident/PA/DEVELOPER EVANGELIST, agreed w/resident/PA/DEVELOPER EVANGELIST, reviewed EMR data (avail), discussed with nursing, discussed with case mgmt, reviewed images Attending Assessment/Plan: Events overnight noted. Patient had an MRI of the abdomen without gadolinium which showed suspected hepatocellular carcinoma with portal vein thrombosis, suspected tumor thrombus. Dr. Noble spoke to the cheesemaking laborer and the night team who made arrangements with the [facility] for transfer for treatment of the hepatocellular carcinoma with possible liver biopsy, and chemoembolization if appropriate. Patient is agreeable to all of the above. He is nothing by mouth right now for an endoscopy to screen for varices while awaiting a bed at [place]. His creatinine has improved with hydration but it needs to improve further for him to get contrast. He remains with normal mentation without asterixis or encephalopathy with acute transaminitis. He was seen by the vascular surgery service for the thrombus and given that it could be true thrombus with hypercoagulable state versus tumor thrombus he was empirically started on IV heparin overnight.
[2017-06-22] MEDS ORDERED: ONE DAILY MULT1 EAC2 PO (07:21)
[2017-06-22] MEDS ORDERED: VITAMIN B-1100 MG PO (07:21)
[2017-06-22] MEDS ORDERED: FOLIC ACID1 M1 PO (07:21)
--- NOTE | 2017-06-22 07:24 | Patient Discharge Instructions ---
Discharge Instructions General Discharge Information You were seen/treated for: elevated liver enzymes liver mass You had these procedures: Abdominal US and CT scan Abdominal MRI Special Instructions: You will be transferred [facility] for further management please follow up with your PCP upon discharge Diet Continue normal diet: Yes Recommended Diet: Regular Acute Coronary Syndrome Inclusion Criteria At DC or during hospital stay patient has or had the following: ACS DIAGNOSIS No Discharge Core Measures Meds if any: Prescribed or Continued at Discharge Meds if any: NOT Prescribed or Continued at Discharge Congestive Heart Failure Inclusion Criteria At DC or during hospital stay patient has or had the following: CHF DIAGNOSIS No Discharge Core Measures Meds if any: Prescribed or Continued at Discharge Meds if any: NOT Prescribed or Continued at Discharge Cerebrovascular accident Inclusion Criteria At DC or during hospital stay patient has or had the following: CVA/TIA Diagnosis No Discharge Core Measures Meds if any: Prescribed or Continued at Discharge Meds if any: NOT Prescribed or Continued at Discharge Venous thromboembolism Inclusion Criteria VTE Diagnosis No VTE Type NONE VTE Confirmed by (Test) NONE Discharge Core Measures - Per Current guidelines, there needs to be overlap - treatment for the first 5 days of Warfarin therapy. - If discharged on Warfarin prior to 5 days of - overlap therapy, the patient will need to be - assessed for post discharge needs including - *Post discharge parental anticoagulation - *Warfarin and/or parental anticoagulation education - *Follow up date to check INR post discharge At least 5 days overlap therapy as Inpatient No Meds if any: Prescribed or Continued at Discharge Note: Overlap Therapy is Warfarin and Anticoagulant Meds if any: NOT Prescribed or Continued at Discharge
[2017-06-22] MEDS ORDERED: PROTONIX40 M3 IV (08:38)
[2017-06-22] MEDS ORDERED: HEPARIN-D525000 UNI1 IV (08:41)
[2017-06-22 13:21] LABS: PTT > 120 SEC (25-37)
--- NOTE | 2017-06-22 13:53 | Cons- Hematology ---
General Information and HPI Consulting Request Date of Consult: 06/22/17 Requested By: JAMES CANALES MD Reason for Consult: Thrombocytosis, liver mass Source of Information: patient, old records Exam Limitations: no limitations History of Present Illness: Mr. Martins is a 76-year-old male with CAD with CABG x 3 vessel (1991), HTN, HLD , TIA, renal insufficiency, and alcohol and tobacco dependence who presents to the hospital after found to be jaundice and have abnormal blood work by his PCP. He has been feeling unwell for a few weeks. He has weight loss, decrease oral intake, dark stools, and urinary incontinence. He was seen in ED on 06/18/2017 and found to have platelet of 1,249,000 and WBC of 15,600. Hemoglobin was at 11.6 g/dL with hematocrit of 33.1. He was recommend to have further evaluation but left AMA. He came back for evaluation. On presentation, he was noted to have persistent elevation of platelet counts and WBC. His creatinine was notable to be elevated at 3.2. His bilirubin was 14.5 with mostly direct at 12.6. The rest of his LFT were increased. US of the abdomen demonstrated liver cirrhosis with partial thrombus of the central portal vein and probably complete thrombosis in the right and left portal veins. CT scan noted mass lesion in the right lobe of the liver. There is moderate free fluid in the abdomen. MRI of the abdomen confirmed cirrhotic liver with innumerable hepatic masses and small volume ascites. He does have enlarged main , right, and left portal veins with no vascular flow. 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 He is has been started on heparin drip. He feels well currently. He does not have much symptoms. Allergies/Medications Allergies: Coded Allergies: NO KNOWN ALLERGIES (UNKNOWN 06/21/17) Home Med List: Aspirin (Aspirin*) 81 MG TAB.CHEW 1 TAB PO DAILY HEART HEALTH (Reported) Folic Acid 1 MG TABLET 1 MG PO DAILY supplement Heparin Sodium,Porcine/D5w (Heparin-D5w 25,000 Unit/500 Ml) 25,000 UNIT/500 ML ( 50 UNIT/ML) IV.SOLN 25,000 UNITS IV Q24 thrombosis Multivitamin (One Daily Multivitamin) 1 EACH TABLET 1 TAB PO DAILY supplement Nifedipine (Nifedipine ER) 60 MG TABLET.ER 1 TAB PO DAILY HEART (Reported) Pantoprazole Sodium (Protonix) 40 MG TABLET.DR 40 MG IV DAILY reflux Pravastatin Sodium (Pravachol) 40 MG TABLET 1 TAB PO DAILY CHOLESTEROL ( Reported) Thiamine HCl (Vitamin B-1) 100 MG TABLET 100 MG PO DAILY supplement Current Medications: Current Medications Sig/Izzy Start time Last Medication Dose Route Stop Time Status Admin Aspirin 81 MG DAILY 06/21 1913 AC 06/21 PO 2233 Folic Acid 1 MG DAILY 06/22 1000 AC PO Heparin Sodium/ 25,000 UNIT Q24H 06/21 2030 AC 06/22 Dextrose IV 0700 Dextrose/Water 500 ML Lorazepam 0 Q1P PRN 06/21 1415 AC IV Morphine Sulfate 0.5 MG Q6-PRN PRN 06/21 1545 AC IV Multivitamins 1 TAB DAILY 06/21 1938 AC 06/21 PO 2232 Multivitamins 0 .STK-MED ONE 06/21 1412 DC PO Multivitamins 1 TAB DAILY 06/21 1400 DC 06/21 PO 1408 Nicotine 0 .STK-MED ONE 06/21 1412 DC TOP Nicotine 14 MG Q24 06/21 1359 AC 06/22 TOP 0954 Pantoprazole Sodium 40 MG DAILY 06/21 1916 AC 06/22 IV 0954 Polyethylene Glycol 1 GAL ONE TIME ONE 06/21 1600 DC 06/21 PO 06/21 1601 1803 Sodium Chloride 1,000 ML .Q10H 06/21 1900 AC 06/22 IV 06/22 1458 0500 Sodium Chloride 1,000 ML .Q10H 06/21 1400 DC 06/21 IV 06/21 2359 1414 Sodium Chloride 1,000 ML ONCE ONE 06/21 0830 DC 06/21 IV 06/21 1829 0851 Thiamine HCl 100 MG DAILY 06/21 193 AC 06/21 PO 2233 Review of Systems Review of Systems Constitutional: Reports: malaise, weakness. Denies: chills, fever. Cardiovascular: Denies: chest pain. Respiratory: Denies: short of breath. GI: Reports: bloating. Denies: abdominal pain, nausea, vomiting. Genitourinary: Denies: dysuria. Neurological/Psychological: Reports: confusion, depressed. Hematologic/Endocrine: Reports: bruising. Denies: bleeding. Immunologic/Allergic: Denies: lymphadenopathy. All Other Systems: Reviewed and Negative Past History Travel History Traveled to [place] past 21 day No Medical History Blood Transfusion Hx: No Neurological: TIA EENT: NONE Cardiovascular: CAD, hypertension, hyperlipidemia, TRIPLE BYPASS 1991 CABG Respiratory: NONE (hyperinflated lungs on CXR), COPD Gastrointestinal: NONE Hepatic: cholelithiasis, jaundice, elevated LFTs- EtOH Renal: chronic kidney disease, KIDNEY FAILURE Musculoskeletal: GENERAL BODY ACHES Psychiatric: depression (since 2nd 09/2016) Endocrine: vitamin D deficiency Blood Disorders: thrombocytosis Cancer(s): NONE BUREAU DIRECTOR/Reproductive: NONE Surgical History Surgical History: CABG (x 3, 1991) Family History Relations & Conditions If Any: MOTHER (primary site unknown). , Age 60+; Cause: Cancer. FATHER, , Age 59; Cause: Myocardial infarction. Psychosocial History Where Do You Live? Home Who Do You Live With? self Services at Home: None Primary Language: Yakut Smoking Status: Current Everyday Smoker ETOH Use: heavy use Illicit Drug Use: denies illicit drug use Living Will? yes Power of Incinerator Operator/HCP? no Other Social History: from 1st in 1973. Twin dtrs by 1st - [facility]. 2nd 1976, who 09/2016. Depressed since. 40 pk yr cigarette smoker (resumed 1/2 ppd in 09/2016). Long hx EtOH abuse- 5 scotches/day. No drugs or IVDA. Retired in 1996. 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 Lives alone. Functional Ability ADLs Independent: dressing, eating, toileting, bathing. Ambulation: independent IADLs Independent: shopping, housework, finances, food prep, telephone, transportation , medication admin. 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 Exam & Diagnostic Data Vital Signs and I&O Vital Signs Date Time Temp Pulse Resp B/P B/P Pulse O2 O2 Flow FiO2 Mean Ox Delivery Rate 06/22 1000 97.7 74 20 128/62 06/22 0800 97.7 74 20 128/62 06/22 0600 97.9 78 20 122/66 06/22 0529 97.9 78 20 122/60 96 Room Air 06/22 0233 97.7 69 20 124/64 97 Room Air 06/22 0200 97.7 69 20 124/64 06/22 0000 97.5 74 20 126/60 06/22 0000 98 Room Air 06/21 2250 97.5 74 20 126/60 98 Room Air 06/21 2249 97.3 73 18 124/60 06/21 2200 97.3 73 18 124/60 06/21 2000 97.3 73 18 124/60 06/21 1800 97.3 73 18 124/60 06/21 1747 97.3 73 20 124/60 97 Room Air 06/21 1425 98.7 72 18 119/64 06/21 1421 98.7 72 18 11964 97 Room Air Intake & Output 06/22 1600 06/22 0800 06/22 0000 Intake Total 998 1900 Output Total 60 Balance 998 1840 Intake, IV 968 300 Intake, Oral 30 1600 Number 3 3 Bowel Movements Output, Urine 60 Patient 63.957 kg Weight Weight Reported by Patient Measurement Method Physical Exam General Appearance: well developed/nourished, no apparent distress, alert, awake , comfortable, thin Head: atraumatic Eyes: Bilateral: PERRL, other (icterus). Ears, Nose, Throat: normal pharynx Neck: supple Respiratory: normal breath sounds, chest non-tender, no respiratory distress Cardiovascular: regular rate/rhythm, systolic murmur Gastrointestinal: normal bowel sounds, soft, distention Extremities: no edema Neurologic/Psych: awake, alert, oriented x 3 Skin: warm/dry, jaundice Lymphatic: no anterior cervical giorgi Last 48 Hours of Lab Results: Laboratory Tests 06/22 06/22 06/22 06/21 1155 0600 0515 2150 Chemistry Sodium (137 - 145 mmol/L) 132 L Potassium (3.5 - 5.1 mmol/L) 4.2 Chloride (98 - 107 mmol/L) 103 Carbon Dioxide (22 - 30 mmol/L) 13 L Anion Gap (5 - 16) 16 BUN (9 - 20 mg/dL) 67 H Creatinine (0.7 - 1.2 mg/dL) 2.9 H Estimated GFR (>60 ml/min) 21 L BUN/Creatinine Ratio (7 - 25 %) 23.1 Total Bilirubin (0.2 - 1.3 mg/dL) 13.1 H Direct Bilirubin (< 0.4 mg/dL) 11.8 H AST (17 - 59 U/L) 352 H ALT (21 - 72 U/L) 211 H Alkaline Phosphatase (< 127 U/L) 578 H Total Protein (6.3 - 8.2 g/dL) 6.2 L Albumin (3.5 - 5.0 g/dL) 3.0 L Alpha Fetoprotein Pending Carcinoembryonic Ag Pending Methylmalonic Acid Pending Coagulation APTT (25 - 37 SEC) Pending > 120 *H 39 H Hematology CBC w Diff MAN DIFF ORDERED WBC (4.8 - 10.8 /CUMM) 15.9 H RBC (4.70 - 6.10 /CUMM) 3.11 L Hgb (14.0 - 18.0 G/DL) 10.3 L Hct (42 - 52 %) 29.9 L MCV (80.0 - 94.0 FL) 96.0 H MCH (27.0 - 31.0 PG) 33.0 H RDW (11.5 - 14.5 %) 16.1 H Plt Count (130 - 400 /CUMM) 848 H MPV (7.4 - 10.4 FL) 7.2 L Segmented Neutrophils (42.2 - 75.2 %) 89 H Lymphocytes (20.5 - 51.1 %) 5 L Monocytes (1.7 - 9.3 %) 5 Eosinophils (0 - 5.0 %) 1 Platelet Estimate (ADEQUATE) INCREASED Hypochromic-Microcytic 1+ PUBS MCHC (33.0 - 37.0 G/DL) 34.4 Immunology Anti-Mitochondrial Ab Pending 06/21 06/21 06/21 2100 2100 2100 Chemistry Sodium (137 - 145 mmol/L) 129 L Potassium (3.5 - 5.1 mmol/L) 4.8 Chloride (98 - 107 mmol/L) 99 Carbon Dioxide (22 - 30 mmol/L) 16 L Anion Gap (5 - 16) 13 BUN (9 - 20 mg/dL) 69 H Creatinine (0.7 - 1.2 mg/dL) 3.0 H Estimated GFR (>60 ml/min) 20 L BUN/Creatinine Ratio (7 - 25 %) 23.0 Iron (49 - 181 ug/dL) 61 TIBC (261 - 462 ug/dL) 267 Ferritin (17.9 - 464 ng/mL) 3050.0 H Ammonia (9 - 30 umol/L) < 9 L Vitamin B12 (239 - 931 pg/mL) > 1000 H RBC Folate Pending TSH (0.270 - 4.200 uIU/mL) 1.850 Free T4 (0.78 - 2.44 ng/dL) 1.88 Hematology CBC w Diff MAN DIFF ORDERED WBC (4.8 - 10.8 /CUMM) 15.4 H RBC (4.70 - 6.10 /CUMM) 3.26 L Hgb (14.0 - 18.0 G/DL) 10.9 L Hct (42 - 52 %) 31.4 L MCV (80.0 - 94.0 FL) 96.2 H MCH (27.0 - 31.0 PG) 33.3 H RDW (11.5 - 14.5 %) 16.0 H Plt Count (130 - 400 /CUMM) 1021 *H MPV (7.4 - 10.4 FL) 8.1 Segmented Neutrophils (42.2 - 75.2 %) 87 H Lymphocytes (20.5 - 51.1 %) 7 L Monocytes (1.7 - 9.3 %) 4 Eosinophils (0 - 5.0 %) 2 Platelet Estimate (ADEQUATE) VERIFIED BY SMEAR Normochromic RBCs VERIFIED Target Cells FEW PUBS MCHC (33.0 - 37.0 G/DL) 34.7 Other Body Source Fld Total RBCs Counted (%) 100 Serology Hep Bs Antibody (NONREACTIVE) NONREACTIVE 06/21 1937 1800 Chemistry Sodium Cancelled Potassium Cancelled Chloride Cancelled Carbon Dioxide Cancelled Anion Gap Cancelled BUN Cancelled Creatinine Cancelled BUN/Creatinine Ratio Cancelled TSH Cancelled Free T4 Cancelled Urines Ur Random Creatinine (mg/dL) 123.2 Ur Random Sodium (30 - 90 mmol/L) 9 L Ur Random Potassium (mmol/L) 47.0 Fraction Sodium Excret (<1% %) 0.2 06/21 06/21 1540 1540 Chemistry Lactic Acid (0.7 - 2.1 mmol/L) 1.9 Urines Urinalysis MOD H Urine Color (YEL,AMB,STR) FRANCISCA Urine Clarity (CLEAR) HAZY H Urine pH (5.0 - 8.0) 6.0 Ur Specific [place] (1.001 - 1.035) 1.020 Urine Protein (NEG,<30 MG/DL) 30 H Urine Ketones (NEG) NEG Urine Nitrite (NEG) NEG Urine Bilirubin (NEG) POS@ICTO H Urine Urobilinogen (0.1 - 1.0 EU/dl) 4.0 H Ur Leukocyte Esterase (NEG) TRACE H Ur Microscopic SEDIMENT EXAMINED Urine WBC (0 - 2 /HPF) 3-5 H Ur Epithelial Cells (NONE,FEW) MOD H Urine Bacteria (NEG/NONE) FEW H Granular Casts (NONE /LPF) FEW H Urine Hemoglobin (NEG) LARGE H Ur Random Creatinine (mg/dL) 122.8 Ur Random Sodium (30 - 90 mmol/L) 8 L Ur Random Potassium (mmol/L) 49.2 Fraction Sodium Excret (<1% %) 0.2 Urine Glucose (N MG/DL) NEG 06/21 06/21 0848 0829 Chemistry Sodium (137 - 145 mmol/L) 131 L Potassium (3.5 - 5.1 mmol/L) 4.8 Chloride (98 - 107 mmol/L) 100 Carbon Dioxide (22 - 30 mmol/L) 13 L Anion Gap (5 - 16) 18 H BUN (9 - 20 mg/dL) 72 H Creatinine (0.7 - 1.2 mg/dL) 3.2 H Estimated GFR (>60 ml/min) 19 L BUN/Creatinine Ratio (7 - 25 %) 22.5 Glucose (65 - 99 mg/dL) 96 Calcium (8.4 - 10.2 mg/dL) 10.0 Total Bilirubin (0.2 - 1.3 mg/dL) 14.5 H Direct Bilirubin (< 0.4 mg/dL) 12.6 H AST (17 - 59 U/L) 451 H ALT (21 - 72 U/L) 240 H Alkaline Phosphatase (< 127 U/L) 692 H Total Protein (6.3 - 8.2 g/dL) 7.4 Albumin (3.5 - 5.0 g/dL) 3.5 Globulin (1.9 - 4.2 gm/dL) 3.9 Albumin/Globulin Ratio (1.1 - 2.2 %) 0.9 L Coagulation PT (9.4 - 12.5 SEC) 15.0 H INR (0.90 - 1.17) 1.43 H Hematology CBC w Diff MAN DIFF ORDERED WBC (4.8 - 10.8 /CUMM) 15.9 H RBC (4.70 - 6.10 /CUMM) 3.66 L Hgb (14.0 - 18.0 G/DL) 12.1 L Hct (42 - 52 %) 35.1 L MCV (80.0 - 94.0 FL) 96.0 H MCH (27.0 - 31.0 PG) 33.2 H RDW (11.5 - 14.5 %) 15.9 H Plt Count (130 - 400 /CUMM) 1171 *H MPV (7.4 - 10.4 FL) 7.6 Segmented Neutrophils (42.2 - 75.2 %) 86 H Band Neutrophils (0.0 - 5.0 %) 1 Lymphocytes (20.5 - 51.1 %) 6 L Monocytes (1.7 - 9.3 %) 4 Eosinophils (0 - 5.0 %) 2 Basophils (0.0 - 2.0 %) 1 Platelet Estimate (ADEQUATE) INCREASED Anisocytosis 1+ Target Cells PUBS MCHC (33.0 - 37.0 G/DL) 34.5 Retic Count (0.5 - 2.0 %) 3.37 H Immunology EPI Titer ND Anti-Nuclear Antibody (NEG,1:40) NEG 1:40 IFA ASSAY Imaging/Other Studies: Abdominal US 06/21/2017: 1. Above findings are consistent with liver cirrhosis with suspicion of partial thrombus in the central portal vein and probably complete thrombosis in the right and left portal veins, which are not seen with color Doppler imaging. 2. No discrete liver mass appreciated, including in the right lobe of the liver, where on CT scan in a 5 cm mass lesion was suspected. 3. Diffuse gallbladder wall thickening, edema, pericholecystic fluid, and small gallstone are noted. Findings are nonspecific in the setting of hepatic dysfunction and ascites. Close clinical correlation is requested. 4. Atrophic right kidney. Abdomen/pelvis CT 06/21/2017: Significantly limited examination due to the lack of IV contrast. However, there is suggestion of a mass lesion within the lateral aspect of the right lobe of the liver. The liver has extensive subcapsular nodularity and decreased size which is nonspecific, but could be indicative of chronic hepatocellular disease, such as cirrhosis. Recommendation is for correlation with abdominal MRI with contrast for further characterization of the suspected hepatic mass lesion. Gallbladder wall thickening with pericholecystic fluid. There is a solitary calculus. Cholecystitis cannot be excluded. Consider correlation with ultrasound. Atrophic right kidney. Nnebe-ve-tiwudftl amount of free fluid within the abdomen and pelvis of uncertain etiology. Abdominal MRI 06/21/2017: 1. Nodular cirrhotic liver with innumerable hepatic masses and small volume ascites seen. While not definitive by imaging given the lack of intravenous contrast, findings are highly suspicious for multifocal hepatocellular carcinoma. 2. Enlarged main, right and left portal veins with no vascular flow demonstrated. 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 3. Atrophic right kidney. 4. Bilateral small subcentimeter sized renal masses, most likely cysts. 5. Multilevel moderate degenerative changes in the thoracolumbar spine with posterior disc osteophyte complexes seen at multiple levels. Associated spinal stenosis at the L3-L4 level is suspected. Assessment/Plan Assessment: Mr. Martins is a 76-year-old male with CAD with CABG x 3 vessel (1991), HTN, HLD , TIA, renal insufficiency, and alcohol and tobacco dependence who presents to the hospital after found to be jaundice and have abnormal blood work by his PCP. He was previously seen on 06/18/2017 in the ED and left AMA. He returned on 06/21 for follow up. Since admission, he has been noted to have mild leukocytosis with neutrophilic predominance, thrombocytosis at 848,000 which is improved, elevated bilirubin at 13.1 with mostly direct 11.8, elevated creatinine at 2.9, and mild elevation of INR. Imaging demonstrated innumerable liver masses, portal venous thrombosis, and small ascites. He has been started on heparin drip. Poral thrombus is likely tumor. Liver masses may be primary HCC vs metastatic disease. Imaging is non- contrasted study. He may need biopsy of the liver mass. He will need endoscopic evaluation. He will need AFP checked. He will need to be monitored closely for withdrawal. His thrombocytosis may be reactive from his disease. This is improving currently. His elevated ferritin is likely related to underlying liver process. If this does not improve with improved liver function, he may need hemochromatosis evaluation. Recommendations: 1. Check AFP, CEA 2. GI evaluation for endoscopy 3. Consider liver biopsy 4. CT of the chest 5. Heparin drip for now, although may not be as effective if tumor thrombus 6. Monitor CBC 7. Evaluate for infectious etiology: follow up cultures 8. Follow up GI evaluation of liver disease Problem List: 1. Thrombocytosis 2. Acute kidney injury 3. Hepatoma 4. Total bilirubin, elevated 5. Alcohol dependence 6. Decompensation of cirrhosis of liver Other Findings/Comments: Please call [phone] with any questions or concerns. Consult Acknowledgment - Thank you for your consult request.
[2017-06-22 19:04] LABS: PTT 88 SEC (25-37)
== END 2017-06-22 23:20 | disposition short-term general hospital (02) | DRG 442 ==
LOC: ERH 08:13 → 2NA 11:09 → ERHI 11:09 → ENRESERV 16:02 → ENTRNSPT 16:39 → 2NA 17:16 → EDTRNSPTSTS 17:21 → EDTRNSPTTM 17:21 → EDTRNSPT 17:21 → CMPTRNSPT 17:26 → ENPENDDIS 06-22 08:59 → 2NA 06-22 23:20
PROVIDERS: Dermatology; Emergency Medicine; Internal Medicine; ADMIT Internal Medicine
DX: I81 Portal vein thrombosis (principal); N17.9 Acute kidney failure, unspecified; E46 Unspecified protein-calorie malnutrition; C22.0 Liver cell carcinoma; E87.2 Acidosis; K70.10 Alcoholic hepatitis without ascites; I12.9 Hypertensive chronic kidney disease with stage 1 through stage 4 chronic kidney disease, or unspecified chronic kidney disease; J44.9 Chronic obstructive pulmonary disease, unspecified; K70.30 Alcoholic cirrhosis of liver without ascites; I25.10 Atherosclerotic heart disease of native coronary artery without angina pectoris; E78.5 Hyperlipidemia, unspecified; N18.9 Chronic kidney disease, unspecified; E55.9 Vitamin D deficiency, unspecified; F32.9 Major depressive disorder, single episode, unspecified; Z66 Do not resuscitate; Z68.22 Body mass index [BMI] 22.0-22.9, adult; K80.20 Calculus of gallbladder without cholecystitis without obstruction; F10.20 Alcohol dependence, uncomplicated; R32 Unspecified urinary incontinence; D47.3 Essential (hemorrhagic) thrombocythemia; F17.210 Nicotine dependence, cigarettes, uncomplicated; Z95.1 Presence of aortocoronary bypass graft; Z86.73 Personal history of transient ischemic attack (TIA), and cerebral infarction without residual deficits
CPT/HCPCS: 2NAP; 74181; 84133; 84300; 36415; 74176; 81001; 82436; 82570; 87086; 93005; 93010; J1644; J3490; J7060